=== PATIENT | male | born 1950 | race Caucasian/White ===

== ENCOUNTER 2019-07-05 05:14 | Inpatient (IN) | payer MEDICARE, OTHER ==
[2019-07-05] MEDS ORDERED: NS 0.9% 1000 ML** 2,000 ML IV ONE (05:26)
[2019-07-05] MEDS ORDERED: cefTRIAXone(*) 1 GM in NS 0.9% 50 ML* 50 ML IVPB ONE (05:26)
[2019-07-05] MEDS ORDERED: Azithromycin 500 mg/250 ml NS 500 MG/250 ML BAG IVPB ONE (05:26)
[2019-07-05] MEDS ORDERED: Hydrocortisone INJ* 250 MG VIAL IV ONE (05:27)
--- NOTE | 2019-07-05 05:36 | ED ---
HPI Cardiac - HPI Summary HPI Summary: Patient is a 68 y/o M presenting to [facility] via EMS from [facility] for SOB. The patient had been evaluated at [place] yesterday for SOB. He was diagnosed with new onset afib, prescribed metoprolol and xarelto. Tonight, after eating food, he became SOB with tachypnea. The patient went to [place], diltiazem 10 mg was administered. He began to experience N/V. It is reported that the patient's HR dropped to 20s, pacers were placed. However, no pacing was needed as HR waldo to 60s. The patient later became nauseous once more and dropped to 40s. HR waldo again after the patient vomited. Patient was given reglan 5 mg IV and NS. During transport, the patient was hypotensive, with systolic BP in 90s which worsened to 70s. Patient improved to 106/75 upon arrival after EMS fluids administration. The patient states that he first began to experience SOB two weeks ago. He notes that exertion aggravated SOB. Some cough is noted as well. Fever, BLE edema, and chest pain are denied. Decreased appetite tonight is noted. PMHx of left inguinal hernia and TIA stated. PSHx of lower back surgery noted. In the room, patient is NSR. Home medications and allergies are reviewed. - History of Current Complaint Stated Complaint: RAPID HR PER EMS Hx Obtained From: Patient Onset/Duration: Still Present Timing: Constant Current Severity: None Pain Scale Used: 0-10 Numeric Character: Dyspnea at Exertion Aggravating Factor(s): Exertion Alleviating Factor(s): Nothing Associated Signs and Symptoms: Positive: Shortness of Breath, Cough, Other: - positive - decreased appetite. Negative: Chest Pain, Swelling, Fever - Allergy/Home Medications Allergies/Adverse Reactions: Allergies Allergy/AdvReac Type Severity Reaction Status Date / Time No Known Allergies Allergy Verified 07/05/19 05:30 Home Medications: Home Medications Metoprolol Succinate XL TAB* [Toprol XL TAB*] 50 mg PO DAILY 07/05/19 [History Confirmed 07/05/19] Rivaroxaban TAB(*) [Xarelto 20 mg] 20 mg PO DAILY 07/05/19 [History Confirmed ] PMH/Surg Hx/FS Hx/Imm Hx Musculoskeletal History: Reports: Other Musculoskeletal History - inguinal hernia Sensory History: Denies: Hx Legally Blind, Hx Deafness Opthamlomology History: Denies: Hx Legally Blind EENT History: Denies: Hx Deafness Neurological History: Reports: Hx Transient Ischemic Attacks (TIA) - Surgical History Surgery Procedure, Year, and Place: lower back surgery - Family History Known Family History: Negative: Seizure Disorder - Social History Alcohol Use: Occasionally Substance Use Type: Reports: None Smoking Status (MU): Never Smoked Tobacco Review of Systems Negative: Fever Negative: Chest Pain Positive: Shortness Of Breath, Cough Gastrointestinal: Other - positive - decreased appetite Positive: Vomiting, Nausea Negative: Edema All Other Systems Reviewed And Are Negative: Yes Physical Exam - Summary Physical Exam Summary: Appearance: Ill-appearing, Well-nourished, lying in bed. He is noted to be hypotensive. Skin: Warm, dry, no obvious rash Eyes: sclera anicteric, no conjunctival pallor ENT: mucous membranes moist, pharynx appears normal Neck: Supple, nontender Respiratory: He has bibasilar rhonchi, no signs of respiratory distress Cardiovascular: Regular rapid rhythm with no extra heart sounds noted. Normal S1 , S2. No murmurs. Normal distal pulses in tibial and radial bilaterally. Abdomen: Obese but soft, nontender, normal active bowel sounds present Musculoskeletal: Normal, Strength/ROM Intact Neurological: A&Ox3, awake and alert, mentation is normal, speech is fluent and appropriate Psychiatric: affect is normal, does not appear anxious or depressed Triage Information Reviewed: Yes Vital Signs Reviewed: Yes Procedures - Sedation Patient Received Moderate/Deep Sedation with Procedure: No Diagnostics - Laboratory Result Diagrams: 07/05/19 07:30 07/05/19 07:30 Lab Statement: Any lab studies that have been ordered have been reviewed, and results considered in the medical decision making process. - CT CTA CHEST/THORAX CT Interpretation Completed By: Radiologist Summary of CT Findings: IMPRESSION: 1. No acute pulmonary embolic disease. 2. Cardiomegaly with an enlarged left and right atria. Moderate bilateral. pleural effusion with associated atelectasis. 3. Engorgement of the pulmonary venous system. This may represent fluid. overload. THIS REPORT WAS REVIEWED BY DR. COOMBS. - EKG 0530 Cardiac Rate: Tachycardia EKG Rhythm: Sinus Tachycardia Summary of EKG Findings: EKG showed sinus tachycardia with rate of 128 BPM, borderline low voltage extremity leads, no STEMI. ED physician has reviewed and interpreted this EKG. Disposition - Course Course Of Treatment: Patient is a 68 y/o M presenting to [facility] via EMS from [facility] for SOB. The patient had been evaluated at [place] yesterday for SOB. He was diagnosed with new onset afib, prescribed metoprolol and xarelto. Tonight, after eating food, he became SOB with tachypnea. The patient went to [place], diltiazem 10 mg was administered. He began to experience N/V. It is reported that the patient's HR dropped to 20s, pacers were placed. However , no pacing was needed as HR waldo to 60s. The patient later became nauseous once more and dropped to 40s. HR waldo again after the patient vomited. Patient was given reglan 5 mg IV and NS. During transport, the patient was hypotensive, with systolic BP in 90s which worsened to 70s. Patient improved to 106/75 upon arrival after EMS fluids administration. The patient states that he first began to experience SOB two weeks ago. He notes that exertion aggravated SOB. Some cough is noted as well. Fever, BLE edema, and chest pain are denied. Decreased appetite tonight is noted. On physical exam, patient is noted to be ill- appearing and hypotensive. He has bibasilar rhonchi. Abdomen is obese but soft. Regular rapid rhythm with no extra heart sounds noted. EKG showed sinus tachycardia with rate of 128 BPM, borderline low voltage extremity leads, no STEMI. CTA CHEST/THORAX IMPRESSION: 1. No acute pulmonary embolic disease. 2. Cardiomegaly with an enlarged left and right atria. Moderate bilateral. pleural effusion with associated atelectasis. 3. Engorgement of the pulmonary venous system. This may represent fluid. overload. During ED course, patient received fluids, solu-cortef 250 mg IV, ceftriaxone sodium 1 gm in 50 mls @ 100 mls IVPB, azithromycin 500 mg/250 mls @ 250 mls/hr IVPB, and albuterol 2.5 mg INH. Patient's case was discussed with Dr. Tian, Dr. Tian accepts for admission. - Diagnoses Provider Diagnoses: Respiratory failure, Hypotension - Physician Notifications Discussed Care Of Patient With: Erick Tian Time Discussed With Above Provider: 06:06 Instructed by Provider To: Other - Patient's case was discussed with Dr. Tian, Dr. Tian accepts for admission. - Critical Care Time Critical Care Time: 30-74 min Discharge ED - Sign-Out/Discharge Documenting (check all that apply): Patient Departure - admit - Discharge Plan Condition: Guarded Disposition: ADMITTED TO [facility] - Billing Disposition and Condition Condition: GUARDED Disposition: Admitted to [facility] - Attestation Statements Document Initiated by Toni: Yes Documenting Scribe: SARAH REGALADO Provider For Whom Toni is Documenting (Include Credential): SHELDON COOMBS MD Scribe Attestation: SARAH Sarabia, scribed for SHELDON COOMBS MD on 07/06/19 at 0555. Scribe Documentation Reviewed: Yes Provider Attestation: The documentation as recorded by the SARAH lamb accurately reflects the service I personally performed and the decisions made by me, SHELDON COOMBS MD Status of Scribe Document: Viewed
[2019-07-05] MEDS ORDERED: Iodixanol* (CONTRAST) 320 MG/ML 100 ML SDV IV ONE (05:56)
[2019-07-05] MEDS ORDERED: Albuterol 2.5 MG/3 ML NEB.SOL* (0.083%) INH ONE (06:02)
[2019-07-05] MEDS ORDERED: Ondansetron INJ* 2 MG/ML VIAL IV ONE (06:55)
[2019-07-05] MEDS ORDERED: Ondansetron INJ* 2 MG/ML VIAL ONE (06:56)
[2019-07-05] MEDS ORDERED: Norepinephrine 16MCG/ML IVPRE* 4,000 MCG/250 ML BAG IV ONE (07:37)
[2019-07-05] MEDS: Norepinephrine 16MCG/ML IVPRE* 4,000 MCG/250 ML BAG IV SCH ×6 (07:39→23:27)
--- NOTE | 2019-07-05 07:42 | ED ---
Progress - Progress Note Progress Note: Upon re-evaluation of the patient, he states that he is not feeling well with lightheadedness, nausea, bloating and distension of the abdomen, and shortness of breath. Past medical history is significant for TIA with aspirin use. He was seen in [facility] yesterday for having shortness of breath for the last few weeks when he was diagnosed with new onset atrial fibrillation and was prescribed Toprolol and Xarelto. He continued to experience shortness of breath and returned to [place], but he was then transferred here as he showed atrial flutter. En route to [facility], his blood pressures were waxing and waning, and he was bradycardic. The patient was seen by Dr. North Lemons in the ED with plan and acceptance for admission. However, prior to being sent to the floor, he is still very short of breath with waxing and waning heart rate and blood pressures. Blood work results reveal hemoglobin of 13.5, hematocrit of 40, MCV of 95, MCH of 32, INR of 1.27, carbon dioxide of 15, BUN of 26, creatinine of 1.18, glucose of 186, lactic acid of 2.9, calcium of 7.9, magnesium of 1.8, BNP of 546 , and total protein of 6. ABG results reveal pH of 734, pCO2 of <20, HCO3 of 13.7, and base excess of -14.4. VBG results reveal pH of 7.23, pCO2 of 25, pO2 of 50, HCO3 of 12.4, and base excess of -15.3. EKG at 0717 reveals ectopic rhythm at [address] elevations. Chest X-Ray reveals bilateral pleural effusions with bibasilar atelectasis versus consolidation. Patient agrees and understands need for intubation. (see procedure note) Dr. Coreas, health care recruiter, is in the ED at 0820. She accepts the patient for admission to the ICU. Chest X-Ray following intubation shows tube placement, pulmonary interstitial edema with progression of right lower lung airspace disease, persistent left lower lung airspace disease, and small bilateral pleural effusions. - Results/Orders Results/Orders: EKG at 0717: ectopic rhythm at [address] elevations. ED physician has reviewed and interpreted this EKG. Chest X-Ray Impression: Bilateral pleural effusions with bibasilar atelectasis versus consolidation. ED physician has reviewed this report. Chest X-Ray (post-intubation) Impression: 1. Lines and tubes as above. 2. Interval development of pulmonary interstitial edema with progression of right lower lung airspace disease. 3. Persistent left lower lung airspace disease. 4. Small bilateral pleural effusions. ED physician has reviewed this report. Course/Dx - Course Course Of Treatment: This patient is a 68-year-old male who was signed out from Dr. Lemons at shift change. He reports that the patient is awaiting for admission to the hospital services. The primary nurse reported that the patient is hypotensive, with nausea and vomiting, and he is confused. I evaluated the patient, and the patient is clammy, diaphoretic, and slightly confused. I spoke with patient and family members and the need for the patient to be intubated for protection of his airway. O2 saturation is 90% on 4 liters of oxygen, blood pressure is 80/40 mmHg. I started the patient on Levophed. Patients blood pressure increased to 180/110 mmHg. Patient was given succinylcholine and etomidate. I intubated the patient at the first attempt. Patients blood pressure has not improved, and he was placed on Vasopressin. Patient given 3mg then 2mg Versed by nurse. Dr. Coreas from the ICU saw and examined the patient, and she agrees with management. She requested to place the patient on Versed drip for sedation. Patient was admitted by Dr. Coreas to the ICU. Repeat blood work: CBC within normal limits except for hemoglobin of 13.5, INR of 1.27, carbon dioxide of 15, BUN of 26, creatinine of 1.18, glucose of 186, lactic acid of 2.9, magnesium of 1.8, CK-MB of 7.1, and BNP of 446. Influenza A and B is negative. Lactic acid of 2.9. ABG: PH of 7.34, PCO2 less than 20, PO2 of 89, and O2 sat of 97.6. Chest X-ray after intubation Impression: 1. Lines and tubes as above. 2. Interval development of pulmonary interstitial edema with progression of right lower lung airspace disease. 3. Persistent left lower lung airspace disease. 4. Small bilateral pleural effusions. - Diagnoses Provider Diagnoses: Respiratory failure, Hypotension - Provider Notifications Discussed Care Of Patient With: Marion Coreas - health care recruiter Time Discussed With Above Provider: 08:20 Instructed by Provider To: Admit As Inpatient - Dr. Coreas accepts the patient for admission to the ICU. Discharge ED - Sign-Out/Discharge Documenting (check all that apply): Patient Departure - Patient accepted for admission to the ICU by Dr. Coreas., Receiving Sign-Out Receiving patient FROM: North Lemons - Patient admitted by Dr. Lemons prior to shift change but patient still in ED at shift change at 0700 on 07/05/19. - Discharge Plan Condition: Stable Disposition: ADMITTED TO [facility] - Billing Disposition and Condition Condition: STABLE Disposition: Admitted to [facility] - Attestation Statements Document Initiated by Scribe: Yes Documenting Scribe: Mitzi Duvall Provider For Whom Toni is Documenting (Include Credential): Dr. Joseph Reyes MD Scribe Attestation: Mitzi Sarabia, scribed for Dr. Joseph Reyes MD on 07/05/19 at 1851. Scribe Documentation Reviewed: Yes Provider Attestation: The documentation as recorded by the Mitzi lamb accurately reflects the service I personally performed and the decisions made by me, Dr. Joseph Reyes MD Status of Scribe Document: Viewed Procedures - Procedure Summary Procedure Summary: Procedure - Endotracheal Intubation Permit was implied secondary to an emergent situation. An LMA and bougie were placed within arm's reach. A Glidescope blade was inserted into the oropharynx at which time the vocal cords were visualized. A 7.5 Lithuanian endotracheal tube was inserted and visualized going through the vocal cords. The stylet was removed. The colorimetric change was visualized on the CO2 meter. Breath sounds were heard in both lung belcher equally. The endotracheal tube was placed at 23 cm, measured at the teeth. Portable chest x-ray ordered for confirmation of tube level. Post intubation sedation ordered. Intubation was made at the first attempt. No complications were encountered. - Sedation Patient Received Moderate/Deep Sedation with Procedure: No
[2019-07-05 07:56] LABS: ABS Lymphocytes 1.6 10^3/ul (1.0-4.8); ABS Monocytes 0.3 10^3/ul (0-0.8); ABS Neutrophils 6.2 10^3/ul (1.5-7.7); Eosinophil % 0.1 %; Hematocrit 40 % (42-52); Hemoglobin 13.5 g/dL (14.0-18.0); Lymphocyte % 19.7 %; Mean Corpuscular HGB Conc 34 g/dL (31-36); Mean Corpuscular Hemoglobin 32 pg (27-31); Mean Corpuscular Volume 95 fL (80-94); Mean Platelet Volume 8.4 fL (7.4-10.4); Platelet Count 239 10^3/uL (150-450); Red Blood Count 4.23 10^6 /uL (4.18-5.48); Red Cell Distribution Width 13 % (10-15); White Blood Count 8.2 10^3/uL (3.5-10.8)
[2019-07-05 08:02] LABS: INR 1.27 (0.82-1.09)
[2019-07-05] MEDS ORDERED: Etomidate* 2 MG/ML 20 ML VIAL (40 MG) ONE (08:04)
[2019-07-05] MEDS ORDERED: Succinylcholine* 20 MG/ML 10 ML VIAL ONE (08:05)
[2019-07-05 08:15] LABS: Albumin 3.6 g/dL (3.2-5.2); Calcium 7.9 mg/dL (8.6-10.3); Magnesium 1.8 mg/dL (1.9-2.7); Potassium 4.3 mmol/L (3.5-5.0); Total Bilirubin 0.5 mg/dL (0.2-1.0)
[2019-07-05] MEDS ORDERED: Midazolam* 1 MG/ML 5 ML VIAL (5 MG) ONE ×4 (08:16→09:35)
[2019-07-05] MEDS ORDERED: fentaNYL* 50 MCG/ML 2 ML VIAL (100 MCG VIAL) ONE ×2 (08:17→10:21)
[2019-07-05 08:21] LABS: Albumin/Globulin Ratio 1.5 (1-3); EGFR African American 74.7 (>60); EGFR Non-African American 61.8 (>60); Globulin 2.4 g/dL (2-4)
[2019-07-05] MEDS ORDERED: VECURONIUM BROMIDE 10 MG INJ ONE (08:28)
[2019-07-05] MEDS ORDERED: Vasopressin* 100 UNITS in D5W 250 ML BAG* 245 ML IV SCH (08:30)
[2019-07-05 08:36] LABS: Troponin I 0.01 ng/mL (<0.03)
[2019-07-05 08:38] LABS: CKMB ng/mL 7.1 ng/mL (0.6-6.3)
[2019-07-05] MEDS ORDERED: Midazolam* 1 MG/ML 5 ML VIAL (5 MG) IV SLOW PU ONE (08:43)
[2019-07-05 08:44] LABS: Influenza A Molecular NEGATIVE (Negative); Influenza B Molecular NEGATIVE (Negative)
[2019-07-05 08:45] LABS: Free T4 0.85 ng/dL (0.61-1.12)
[2019-07-05] MEDS ORDERED: Phenylephrine 10 MG/ML VIAL* 50 MG in NS 0.9% 250 ML* 245 ML IV SCH (09:00)
[2019-07-05] MEDS ORDERED: Midazolam IV for DRIP* 100 MG in NS 0.9% 100 ML* 80 ML IV SCH (09:00)
[2019-07-05] MEDS ORDERED: Midazolam* 1 MG/ML 2 ML VIAL (2 MG) IV SLOW PU ONE (09:42)
[2019-07-05 10:02] LABS: TSH (Thyroid Stimulating Horm) 14.33 mcIU/mL (0.34-5.60)
[2019-07-05 11:15] LABS: Urine Appearance Clear; Urine Bilirubin Negative (Negative); Urine Blood 1+ (Negative); Urine Color Yellow; Urine Glucose Negative (Negative); Urine Ketones Negative (Negative); Urine Nitrite Negative (Negative); Urine Protein 1+(30 mg/dL) (Negative); Urine Specific Gravity > 1.060 (1.010-1.030); Urine Urobilinogen Negative (Negative)
[2019-07-05] MEDS ORDERED: NS 0.9% 1000 ML** 1,000 ML IV SCH (11:15)
[2019-07-05 11:24] LABS: Urine Bacteria Absent (Absent); Urine Red Blood Cell 1+(3-5/hpf) (Absent); Urine White Blood Cell Absent (Absent)
[2019-07-05] MEDS ORDERED: Magnesium Sulfate 1 GM IV* 1 GM/100 ML BAG IV ONE (11:26)
--- NOTE | 2019-07-05 11:39 | HP ---
History of Present Illness - History of Present Illness Reason for Visit: shortness of breath History of Present Illness: 68 yo M with PMH notable only for distant hx of TIA and no regular medical followup presented to [place] ED on 07/04 with shortness of breath. At that time he was found to be in atrial flutter; per patient he has not prior history of arrhythmia. He was given cardizem and sent home with Rx for Metoprolol and Rivaroxaban. He returned to the ED later that evening for worsening shortness of breath. He was give 10 mg of Cardizem with subsequent development of symptomatic hypotension with SBP < 60. He was transferred to [place] ED for further workup and care. In [place] ED he was noted to be tachycardic but in sinus rhythm. He had increasing work of breathing and was intubated for acute hypoxic respiratory failure. CXR showed bilateral effusions and infiltrates. CTA chest negative for PE. He was started on Levophed for septic shock, Rocephin and Azithromycin for suspected community acquired pneumonia and admitted to ICU for further care. 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 - Past Surgical History Past Surgical History: Hernia Repair, Other - "lower back surgery" - Past Social History Smoke: No Alcohol: Occasional Drugs: None Review of Systems - Review of Systems Respiratory: Positive: Cough, Shortness of Breath Gastrointestinal: Positive: Nausea, Vomiting, Other - anorexia - Medications/Allergies Allergies/Adverse Reactions: Allergies Allergy/AdvReac Type Severity Reaction Status Date / Time No Known Allergies Allergy Verified 07/05/19 05:30 Medications: Current Medications Heparin Sodium (Porcine) (Heparin Flush Picc/Ml/Cvc(*)) 0 ml FLUSH 0600,1800 GAYATRI; Protocol Norepinephrine Bitartrate (Levophed 16 Mcg/Ml Premix*) 4,000 mcg in 250 mls @ 18.75 mls/hr IV .INITIAL RATE GAYATRI Last Admin: 07/05/19 09:52 Dose: 93.8 mls/hr Vasopressin 100 units/ (Dextrose) 250 mls @ 0 mls/hr IV .(Initial Rate) GAYATRI; Protocol Midazolam HCl 100 mg/ Sodium (Chloride) 100 mls @ 2 mls/hr IV .Q24HR GAYATRI; Protocol Last Admin: 07/05/19 09:45 Dose: 2 mls/hr Phenylephrine HCl 50 mg/ (Sodium Chloride) 250 mls @ 30 mls/hr IV .(Initial Rate) GAYATRI; Protocol Sodium Chloride (Ns 0.9% 1000 Ml) 1,000 mls @ 100 mls/hr IV PER RATE GAYATRI Exam - Exam Vital Signs: Vital Signs (72 hours) 07/05/19 07/05/19 07/05/19 05:19 05:20 05:21 Temperature 96 F Pulse Rate 129 129 Respiratory 17 25 30 Rate Blood Pressure 126/59 106/87 (mmHg) O2 Sat by Pulse 95 95 Oximetry 07/05/19 07/05/19 07/05/19 05:27 06:00 06:10 Temperature Pulse Rate 127 127 111 Respiratory 29 31 23 Rate Blood Pressure 106/87 102/86 (mmHg) O2 Sat by Pulse 95 96 96 Oximetry 07/05/19 07/05/19 07/05/19 06:35 06:39 07:00 Temperature Pulse Rate 126 100 Respiratory 40 22 30 Rate Blood Pressure 109/86 (mmHg) O2 Sat by Pulse 97 96 Oximetry 07/05/19 07/05/19 07/05/19 07:12 07:15 07:17 Temperature 96.3 F Pulse Rate 127 124 Respiratory 21 19 Rate Blood Pressure 85/70 96/63 (mmHg) O2 Sat by Pulse 97 96 Oximetry 07/05/19 07/05/19 07/05/19 07:32 07:44 07:55 Temperature Pulse Rate 124 124 Respiratory 27 30 35 Rate Blood Pressure 183/141 (mmHg) O2 Sat by Pulse 96 97 Oximetry 07/05/19 07/05/19 07/05/19 08:00 08:06 08:16 Temperature Pulse Rate 124 Respiratory 32 33 Rate Blood Pressure 145/114 84/59 (mmHg) O2 Sat by Pulse 90 Oximetry 07/05/19 07/05/19 07/05/19 08:20 08:26 08:30 Temperature Pulse Rate 127 128 149 Respiratory Rate Blood Pressure 43/33 200/143 135/104 (mmHg) O2 Sat by Pulse 92 87 86 Oximetry 07/05/19 07/05/19 07/05/19 08:36 08:39 08:46 Temperature 95.4 F Pulse Rate 123 123 124 Respiratory Rate Blood Pressure 118/71 75/64 121/95 (mmHg) O2 Sat by Pulse 100 100 99 Oximetry 07/05/19 07/05/19 07/05/19 08:55 09:45 09:58 Temperature 96.8 F 96.8 F Pulse Rate 124 123 Respiratory 26 28 Rate Blood Pressure 128/96 128/96 (mmHg) O2 Sat by Pulse 99 99 Oximetry 07/05/19 10:29 Temperature Pulse Rate Respiratory 25 Rate Blood Pressure (mmHg) O2 Sat by Pulse Oximetry General: Other - sedated HEENT: Atraumatic, Mucous membr. moist/pink Lungs: Clear to auscultation, Normal air movement Cardiovascular: Other - tachycardic, regular Abdomen: Soft, No tenderness Extremities: No edema, Other - warm, dry Skin: No rashes, No breakdown Neurological: Other - sedated Psych/Mental Status: Other - sedated Assessment/Plan - Assessment/Plan Assessment: 68 yo M admitted with bilateral community acquired pneumonia, sepsis and an episode of atrial fib/flutter with RVR now sinus tachycardia Plan: Hospital Diagnoses: #1: Septic shock #2: Paroxysmal Atrial fib/flutter with RVR #3: Acute hypoxic respiratory failure #4: Bilateral community acquired pneumonia Cardiovascular: (1) Septic shock; (2) Paroxysmal Atrial fib/flutter with RVR -- HR 100-149 -- SBP 43-200 -- Telemetry -- Lipid panel ordered -- Cardiac markers CK 129 MB 7.1 Trop 0.01 BNP 546 -- Vasopressors Levophed @ 25 mcg/min Vasopressin now off Neosyneprhine not started -- TTE ordered for new onset atrial flutter and findings of bilateral atrial enlargement and pulm vein engorgement on CTA. Home meds: Metoprolol Pulmonary: (1) Acute hypoxic respiratory failure; (2) Bilateral community acquired pneumonia -- RR 17-40 -- sats 86-100 -- vent: daily SBT -- CXR: interval development of pulmonary interstitial edema iwht progression of right lower lung airspace disease. Persistent left lower lung airspace disease. Small bilateral pleural effusions. -- CTA: No acute pulmonary embolic disease. Cardiomegaly with enlarged left and right atria. Moderate bilateral pleural effusions. Engorgement of pulmonary venous system. -- ABG: pH 7.34; pCO2 <20; pO2 89; HCO3 13.7; BE -14.4; %O2 Sat 97.6. on vent Home meds: None Gastrointestinal: No acute issues -- LFTs within normal limits -- diet: NPO -- bowel regimen: None -- ulcer prophylaxis: Pepcid Home meds: None Endocrine: (1) Hypothyroid -- monitor BGs -- Hgb A1c ordered -- TFT TSH 14.33, high T4 0.85, within normal limits -- start synthroid Home meds: None Renal: (1) Prerenal azotemia; (2) Hypocalcemia; (3) Hypomagnesemia -- Cr 1.18 -- Lytes Na 135 K 4.3 Ca 7.9, replace Mag 1.8, replace Phos ordered with AM Labs -- IVF: NS @ 100 ml/hr Home meds: None Infectious disease: (1) Sepsis; (2) Bilateral community acquired pneumonia -- Tmax 96.8 -- WBC 8.2 -- Micro 12/4 MRSA ordered Blood ordered urine ordered sputum ordered Flu A&B negative -- ABX Rocphein Azithromcyin Home meds: None Neurologic: (1) distant hx of TIA -- Versed gtt for sedation -- PRN Fentanyl for pain control Home meds: None Hematological: No acute issues -- Hgb 13.5 -- Plt 239 -- Coags INR 1.27 PTT 29 -- DVT prophylaxis: SQ Lovenox Home meds: Metoprolol, Rivaroxaban Metabolic: (1) Lactic acidosis -- Lactic acid 2.9, hydrating, follow trend Home meds: None Other: No acute issues Home meds: None Deep vein thrombosis prophylaxis: SQ Lovenox Dietary: Pepcid Condition: critical Prognosis: guarded Code status: full Disposition: admit to ICU Family updated at bedside regarding interval events and plan of care Cumulative time spent in the care of this patient (excluding any procedure time) : at least 70 minutes. Patient care included clinical interview (with patient and/or family), bedside exam of the patient, review of labs, x-rays, and other ancillary data, coordination of (respiratory, nursing care, review of patient's records, discussion regarding patients management with involved consultants, primary physician, pharmacists, and other healthcare personnel (dietary, case management , physical/occupational therapy etc.)
--- NOTE | 2019-07-05 11:55 | OP ---
Operative Report - Blank - Operative Report Date of Operation: 07/05/19 - Central Line placement Note: Procedure: Central Line placement Consent obtained: Verbal, from Time out performed: Yes Indications: Vascular access Anesthesia: Local infiltration Local anesthetic: 1% Lidocaine 10 ml Preparation: Chlorhexadine swab Skin prep agen dried: skin prep agent dried prior to procedure Sterile barrier: all five maximal sterile barriers used - gloves, gown, cap, mask and large sterile sheet Hand hygiene: Hand hygiene performed prior to central venous catheter insertion Location: Left IJ Patient position: trendelenberg Catheter type: Triple lumen Catheter size: 7F Pre-procedure: landmarks identified Ultrasound guidance: Yes Sterile ultrasound technique: Sterile gel and sterile probe covers were used Number of attempts: 1 Successful placement: Yes Post-procedure: Line sutured, dressing applied Assessment: blood return through all ports, free fluid flow, CXR pending Complications: None Patient tolerated the procedure with no immediate complications
--- NOTE | 2019-07-05 11:57 | OP ---
Operative Report - Blank - Operative Report Date of Operation: 07/05/19 - Arterial Line Note: Procedure: Arterial Line placement Consent obtained: Verbal, from Time out performed: Yes Indications: septic shock Anesthesia: Versed and Fentanyl Local anesthetic: 1% Lidocaine Preparation: Chlorhexadine swab Skin prep agent dried: prior to procedure Sterile barrier: all five maximal sterile barriers used - gloves, gown, cap, mask and large sterile sheet Hand hygiene: Hand hygiene performed prior to insertion Location: left radial Patient position: supine Catheter type: arrow radial kit Ultrasound guidance: yes Number of attempts: 1 Successful placement: yes Post-procedure: Line sutured, dressing applied Assessment: unchanged from prior. arterial tracing on monitor Complications: no immediate complications
[2019-07-05] MEDS ORDERED: NS 0.9% 1000 ML** 1,000 ML IV ONE (11:58)
[2019-07-05] MEDS ORDERED: Albumin Human 25%* 25 GM/100 ML BTL IV ONE (11:58)
[2019-07-05] MEDS ORDERED: Enoxaparin(*) 40 MG/0.4 ML SYR SUBCUT SCH (12:00)
[2019-07-05] MEDS ORDERED: Levothyroxine INJ* 100 MCG in D5W 250 ML BAG* 250 ML IV SCH (12:00)
[2019-07-05] MEDS ORDERED: Calcium Gluconate INJ* 1 GM in NS 0.9% 50 ML* 50 ML IVPB ONE (12:00)
[2019-07-05 12:15] LABS: HDL Cholesterol 46.6 mg/dL
[2019-07-05] MEDS: fentaNYL* 50 MCG/ML 2 ML VIAL (100 MCG VIAL) IV SLOW PU PRN ×2 (12:31→13:35)
[2019-07-05] MEDS ORDERED: Perflutren Lipid Microsphere* 3 ML VIAL ONE (13:05)
[2019-07-05] MEDS: Chlorhexidine MOUTHWASH 0.12%* 15 ML UDC TOPICAL SCH ×3 (13:25→19:46)
[2019-07-05] MEDS: fentaNYL INFUSION 50 MCG/ML* 2,500 MCG/50 ML BAG IV SCH (14:23)
--- NOTE | 2019-07-05 17:30 | ECHO ---
*[facility]* [place] [address] Fax #: [phone] Transthoracic Echocardiogram Patient: [place] Lopez : 1950 Study Date: 07/05/2019 Age: 68 Gender: M HR: 119 bpm Height: 64 in /162.6 cm BSA: 1.83 m^2 Weight: 171.6 lb /78 kg BMI: 29.5 kg/m^2 *Cma Or Lpn: Kelin Cates [facility] *Referring Physician: * Marion Coreas *Reading Physician: * Kandice Prasad MD Indications: Abnormal EKG. History: Transient ischemic attack. Conclusions Summary: - Left ventricle: The cavity size is mildly dilated. Wall thickness is mildly increased. Systolic function is severely reduced. The estimated ejection fraction is 15-20%. Multiple regional wall motion abnormalities: Joshua appears akinetic, posterior lateral wall and very base move best. - Right ventricle: Systolic function is moderately reduced. - Mitral valve: There is moderate to severe regurgitation. - Tricuspid valve: There is moderate-severe regurgitation. - Pericardium, extracardiac: There is a left pleural effusion. - Pulmonary arteries: Systolic pressure is within the normal range but may be underestimated. The peak pressure during systole by Doppler is 26.0 mm Hg. - No prior echocardiogram to compare. Study data: Transthoracic echocardiogram. Procedure: Transthoracic echocardiography was performed. Image quality was suboptimal. Intravenous Definity , 2 mlswas administered. Complete 2D, spectral Doppler, and color flow Doppler. Location: ICU Patient status: Inpatient. Patient room number: 7. Rhythm: Atrial flutter. Findings Left ventricle: The cavity size is mildly dilated. Wall thickness is mildly increased. Systolic function is severely reduced. The estimated ejection fraction is 15-20%. Severe diffuse hypokinesis with regional variations. Multiple regional wall motion abnormalities: Joshua appears akinetic, posterior lateral wall and very base move best. Left ventricular diastolic function is abnormal, parameters are indeterminate wrt to grade. Right ventricle: The cavity size is normal. Systolic function is moderately reduced. Left atrium: The atrium is severely dilated. Right atrium: The atrium is moderately dilated. Mitral valve: The leaflets are normal thickness. There is no evidence of stenosis. There is moderate to severe regurgitation. Aortic valve: The valve is trileaflet. The leaflets are normal thickness. There is no evidence of stenosis. There is no significant regurgitation. Tricuspid valve: The leaflets are normal thickness. There is no evidence of stenosis. There is moderate-severe regurgitation. Pulmonic valve: The leaflets are normal thickness. There is no evidence of stenosis. There is no significant regurgitation. Aorta: The aortic root appears normal. The aortic arch appears normal. Pericardium: A trace pericardial effusion is identified. There is a left pleural effusion. Pulmonary arteries: The main pulmonary artery is normal-sized. Systolic pressure is within the normal range but may be underestimated. Systemic veins: Inferior vena cava: The vessel is dilated. There is (< 50%) respiratory change in the IVC dimension. Measurements Left ventricle Value Ref Mitral valve Value Ref MEET, LAX 5.5 cm 4.2 - 5.8 Peak E 0.72 m/sec ----- ESD, LAX (H) 5.0 cm 2.5 - 4.0 Decel time 208 ms ----- FS, LAX (L) 9 % 25 - 43 Peak grad, D 2.1 mm Hg ----- PW, ED, LAX 1.0 cm 0.6 - 1.0 ERO, PISA 0.13 cm^2 ----- E', lat ed, TDI (L) 8.5 cm/sec >=10.0 MR vol, PISA 15 ml --- -- E/e', lat ed, 8 TDI Pulmonic valve Value Ref E', med ed, TDI (L) 5.8 cm/sec >=7.0 Peak v, S 0.32 m/sec --- -- E/e', med ed, 12 Peak grad, S 0.0 mm Hg ----- TDI E', avg, TDI 7.2 cm/sec Tricuspid valve Value Ref E/e', avg, TDI 10 <=14 TR peak v 2.1 m/sec &lt ;=2.8 Peak RV-RA grad, S 18 mm Hg ----- LVOT Value Ref Peak tori, S 0.43 m/sec Aortic root Value Ref Root diam 2.9 cm <4.0 Ventricular septum Value Ref IVS, ED (H) 1.1 cm 0.6 - 1.0 Ascending aorta Value Ref AAo AP diam, S 2.9 cm ----- Right ventricle Value Ref MEET, LAX 2.6 cm Aortic arch Value Ref Pressure, S 26 mm Hg Arch diam 2.5 cm ----- Left atrium Value Ref Decending aorta Value Ref AP dim, ES (H) 4.60 cm 3.00 - Alan peak tori 0.35 m/sec ----- 4.00 ML dim, A4C 4.3 cm Pulmonary artery Value Ref SI dim, A4C 6.4 cm Pressure, S 26.0 mm Hg ----- Vol/bsa, ES, A/L (H) 51 ml/m^2 16 - 34 Inferior vena cava Value Ref Right atrium Value Ref Diam 2.4 cm ----- SI dim, ES (H) 5.5 cm 3.4 - 5.3 Estimated RAP 8 mm Hg Aortic valve Value Ref Ed diam, ED 2.2 cm Ed diam/bsa, ED 1.2 cm/m^2 Peak v, S 0.52 m/sec Peak grad, S 1.0 mm Hg Legend: (L) and (H) kimberly values outside specified reference range. Prepared and electronically signed by Kandice Prasad MD 07/05/2019 17:29
[2019-07-05] MEDS: Famotidine IV* 10 MG/ML 2 ML (20 mg) IV SLOW PU SCH (20:00)
[2019-07-06] MEDS: Chlorhexidine MOUTHWASH 0.12%* 15 ML UDC TOPICAL SCH ×6 (00:21→19:50)
[2019-07-06] MEDS: Norepinephrine 16MCG/ML IVPRE* 4,000 MCG/250 ML BAG IV SCH ×4 (03:37→22:54)
[2019-07-06] MEDS: cefTRIAXone(*) 1 GM in NS 0.9% 50 ML* 50 ML IVPB SCH (05:13)
[2019-07-06 06:03] LABS: Hematocrit 36 % (42-52); Hemoglobin 12.2 g/dL (14.0-18.0); Mean Corpuscular HGB Conc 34 g/dL (31-36); Mean Corpuscular Hemoglobin 32 pg (27-31); Mean Corpuscular Volume 96 fL (80-94); Mean Platelet Volume 8.2 fL (7.4-10.4); Platelet Count 221 10^3/uL (150-450); Red Blood Count 3.79 10^6 /uL (4.18-5.48); Red Cell Distribution Width 13 % (10-15); White Blood Count 9.7 10^3/uL (3.5-10.8)
[2019-07-06 06:17] LABS: BUN/Creatinine Ratio 23.1 (8-20); Calcium 7.5 mg/dL (8.6-10.3); EGFR African American 75.5 (>60); EGFR Non-African American 62.4 (>60); Phosphorus 3.6 mg/dL (2.5-5.0); Potassium 4.4 mmol/L (3.5-5.0)
[2019-07-06] MEDS: Azithromycin 500 mg/250 ml NS 500 MG/250 ML BAG IVPB SCH (06:26)
[2019-07-06] MEDS: DOBUTAMINE IV SCH ×3 (07:20→18:17)
[2019-07-06] MEDS: DRIP IV SCH ×3 (07:20→18:17)
[2019-07-06] MEDS ORDERED: Albumin Human 25%* 25 GM/100 ML IV STA (07:22)
[2019-07-06] MEDS ORDERED: Digoxin IV* 0.5 MG/2 ML AMP (0.25 MG/ML) IV SLOW PU ONE (07:28)
[2019-07-06] MEDS ORDERED: Digoxin IV* 0.5 MG/2 ML AMP (0.25 MG/ML) ONE ×2 (07:31→07:32)
[2019-07-06] MEDS ORDERED: Adenosine* 3 MG/ML VIAL IV PUSH ONE (07:32)
[2019-07-06] MEDS ORDERED: Adenosine* 3 MG/ML VIAL ONE (07:33)
[2019-07-06] MEDS ORDERED: NS 0.9% 1000 ML** 1,000 ML IV STA (07:37)
[2019-07-06 07:51] LABS: Troponin I 0.03 ng/mL (<0.03)
[2019-07-06] MEDS ORDERED: Flumazenil* 0.1 MG/ML 5 ML MDV ONE (07:52)
[2019-07-06] MEDS ORDERED: Naloxone* 0.4 MG/ML 1 ML VIAL ONE (07:52)
[2019-07-06] MEDS ORDERED: fentaNYL* 50 MCG/ML 2 ML VIAL (100 MCG VIAL) ONE (07:52)
[2019-07-06] MEDS ORDERED: Midazolam* 1 MG/ML 5 ML VIAL (5 MG) ONE (07:52)
[2019-07-06] MEDS ORDERED: Lidocaine 2% VISCOUS* 15 ML UDC ONE (07:53)
[2019-07-06] MEDS: Heparin VIAL(*) 5000 UNITS/ML VIAL (FIVE THOUSAND) IV SCH (08:06)
[2019-07-06] MEDS: Heparin DRIP 25,000 UNITS(*) 25,000 UNITS/500 ML BAG IV SCH (08:06)
--- NOTE | 2019-07-06 08:20 | PN ---
Date of Service: 07/06/19 - HD 2 Critical Care Services: 68 yo M with PMH notable only for distant hx of TIA and no regular medical followup presented to [place] ED on 07/04 with shortness of breath. At that time he was found to be in atrial flutter; per patient he has not prior history of arrhythmia. He was given cardizem and sent home with Rx for Metoprolol and Rivaroxaban. He returned to the ED later that evening for worsening shortness of breath. He was give 10 mg of Cardizem with subsequent development of symptomatic hypotension with SBP < 60. He was transferred to [place] ED for further workup and care. In [place] ED he was noted to be tachycardic but in sinus rhythm. He had increasing work of breathing and was intubated for acute hypoxic respiratory failure. CXR showed bilateral effusions and infiltrates. CTA chest negative for PE. He was started on Levophed for septic shock, Rocephin and Azithromycin for suspected community acquired pneumonia and admitted to ICU for further care. 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 Vasopressin and Neosynephrie were added. Stat echo revealed poor EF. Cardiology was consulted and is concerned for tachycardic cardiomyopathy as cause for hemodynamic instability. Planning for AKSHAT this morning. Family at bedside and updated. Vital Signs: Temp Pulse Resp BP SpO2 FiO2 99.3 F 132 17 124/91 100 35 07/06/19 08:05 07/06/19 08:05 07/06/19 06:00 07/06/19 08:01 07/06/19 08:05 07/06 06:05 Physical Exam: Gen: intubated, sedated HEENT: ETT in place, pale Lungs: coarse bilaterally Cardiac: RRR (post cardioversion) Abdomen: soft, NTND Extremities: cool, dry Neuro: sedated Fluid Balance (Past 24 Hours): I= O= Net Intake & Output 07/04/19 07/05/19 07/06/19 07/07/19 06:59 06:59 06:59 06:59 Intake Total 5023 Output Total 644 Balance 4379 Weight 172 lb 170 lb 3.15 oz Intake: IV Fluids 3028 NS (0.9%) 2508 IVPB 241 ABX - CEFTRIAXONE 62 Calcium 74 Magnesium 105 Medicated IV 1754 Albumin 100 Levophed 1460 Levothyroxine 194 Output: Aldrich 644 Labs: Laboratory Results - last 24 hr 07/05/19 07/05/19 07/05/19 07:30 07:30 07:30 WBC RBC Hgb Hct MCV MCH MCHC RDW Plt Count MPV INR (Anticoag Therapy) 1.27 H APTT 29.0 ABG pH ABG pCO2 ABG pO2 ABG HCO3 ABG O2 Saturation ABG Base Excess Sodium 135 Potassium 4.3 Chloride 110 Carbon Dioxide 15 L Anion Gap 10 BUN 26 H Creatinine 1.18 H Est GFR ( Amer) 74.7 Est GFR (Non-Af Amer) 61.8 BUN/Creatinine Ratio 22.0 H Glucose 186 H Hemoglobin A1c Lactic Acid 2.9 H* Calcium 7.9 L Phosphorus Magnesium 1.8 L Total Bilirubin 0.50 AST 28 ALT 30 Alkaline Phosphatase 99 Total Creatine Kinase 129 CK-MB (CK-2) 7.1 H Troponin I 0.01 B-Natriuretic Peptide Total Protein 6.0 L Albumin 3.6 Globulin 2.4 Albumin/Globulin Ratio 1.5 Triglycerides 130 Cholesterol 150 LDL Cholesterol 77 HDL Cholesterol 46.6 TSH 14.33 H Free T4 0.85 Urine Color Urine Appearance Urine pH Ur Specific [place] Urine Protein Urine Ketones Urine Blood Urine Nitrate Urine Bilirubin Urine Urobilinogen Ur Leukocyte Esterase Urine WBC (Auto) Urine RBC (Auto) Urine Bacteria Urine Glucose Influenza A (Rapid) Influenza B (Rapid) 07/05/19 07/05/19 07/05/19 07:30 07:55 08:10 WBC RBC Hgb Hct MCV MCH MCHC RDW Plt Count MPV INR (Anticoag Therapy) APTT ABG pH 7.34 L ABG pCO2 < 20 L ABG pO2 89 ABG HCO3 13.7 L ABG O2 Saturation 97.6 ABG Base Excess -14.4 L Sodium Potassium Chloride Carbon Dioxide Anion Gap BUN Creatinine Est GFR ( Amer) Est GFR (Non-Af Amer) BUN/Creatinine Ratio Glucose Hemoglobin A1c Lactic Acid Calcium Phosphorus Magnesium Total Bilirubin AST ALT Alkaline Phosphatase Total Creatine Kinase CK-MB (CK-2) Troponin I B-Natriuretic Peptide 546 H Total Protein Albumin Globulin Albumin/Globulin Ratio Triglycerides Cholesterol LDL Cholesterol HDL Cholesterol TSH Free T4 Urine Color Urine Appearance Urine pH Ur Specific [place] Urine Protein Urine Ketones Urine Blood Urine Nitrate Urine Bilirubin Urine Urobilinogen Ur Leukocyte Esterase Urine WBC (Auto) Urine RBC (Auto) Urine Bacteria Urine Glucose Influenza A (Rapid) Negative Influenza B (Rapid) Negative 07/05/19 07/05/19 07/05/19 10:45 11:50 11:50 WBC RBC Hgb Hct MCV MCH MCHC RDW Plt Count MPV INR (Anticoag Therapy) APTT ABG pH ABG pCO2 ABG pO2 ABG HCO3 ABG O2 Saturation ABG Base Excess Sodium Potassium Chloride Carbon Dioxide Anion Gap BUN Creatinine Est GFR ( Amer) Est GFR (Non-Af Amer) BUN/Creatinine Ratio Glucose Hemoglobin A1c 5.8 H Lactic Acid 2.3 H* Calcium Phosphorus Magnesium Total Bilirubin AST ALT Alkaline Phosphatase Total Creatine Kinase CK-MB (CK-2) Troponin I B-Natriuretic Peptide Total Protein Albumin Globulin Albumin/Globulin Ratio Triglycerides Cholesterol LDL Cholesterol HDL Cholesterol TSH Free T4 Urine Color Yellow Urine Appearance Clear Urine pH 5.0 Ur Specific [place] > 1.060 H Urine Protein 1+(30 mg/dl) A Urine Ketones Negative Urine Blood 1+ A Urine Nitrate Negative Urine Bilirubin Negative Urine Urobilinogen Negative Ur Leukocyte Esterase Negative Urine WBC (Auto) Absent Urine RBC (Auto) 1+(3-5/hpf) A Urine Bacteria Absent Urine Glucose Negative Influenza A (Rapid) Influenza B (Rapid) 07/06/19 07/06/19 07/06/19 05:20 05:20 05:20 WBC 9.7 RBC 3.79 L Hgb 12.2 L Hct 36 L MCV 96 H MCH 32 H MCHC 34 RDW 13 Plt Count 221 MPV 8.2 INR (Anticoag Therapy) APTT ABG pH ABG pCO2 ABG pO2 ABG HCO3 ABG O2 Saturation ABG Base Excess Sodium 139 Potassium 4.4 Chloride 115 H Carbon Dioxide 16 L Anion Gap 8 BUN 27 H Creatinine 1.17 Est GFR ( Amer) 75.5 Est GFR (Non-Af Amer) 62.4 BUN/Creatinine Ratio 23.1 H Glucose 113 H Hemoglobin A1c Lactic Acid Calcium 7.5 L Phosphorus 3.6 Magnesium 2.0 Total Bilirubin AST ALT Alkaline Phosphatase Total Creatine Kinase CK-MB (CK-2) Troponin I B-Natriuretic Peptide 485 H Total Protein Albumin Globulin Albumin/Globulin Ratio Triglycerides Cholesterol LDL Cholesterol HDL Cholesterol TSH Free T4 Urine Color Urine Appearance Urine pH Ur Specific [place] Urine Protein Urine Ketones Urine Blood Urine Nitrate Urine Bilirubin Urine Urobilinogen Ur Leukocyte Esterase Urine WBC (Auto) Urine RBC (Auto) Urine Bacteria Urine Glucose Influenza A (Rapid) Influenza B (Rapid) 07/06/19 07:10 WBC RBC Hgb Hct MCV MCH MCHC RDW Plt Count MPV INR (Anticoag Therapy) APTT ABG pH ABG pCO2 ABG pO2 ABG HCO3 ABG O2 Saturation ABG Base Excess Sodium Potassium Chloride Carbon Dioxide Anion Gap BUN Creatinine Est GFR ( Amer) Est GFR (Non-Af Amer) BUN/Creatinine Ratio Glucose Hemoglobin A1c Lactic Acid Calcium Phosphorus Magnesium Total Bilirubin AST ALT Alkaline Phosphatase Total Creatine Kinase CK-MB (CK-2) Troponin I 0.03 H* B-Natriuretic Peptide Total Protein Albumin Globulin Albumin/Globulin Ratio Triglycerides Cholesterol LDL Cholesterol HDL Cholesterol TSH Free T4 Urine Color Urine Appearance Urine pH Ur Specific [place] Urine Protein Urine Ketones Urine Blood Urine Nitrate Urine Bilirubin Urine Urobilinogen Ur Leukocyte Esterase Urine WBC (Auto) Urine RBC (Auto) Urine Bacteria Urine Glucose Influenza A (Rapid) Influenza B (Rapid) Studies: 07/06 TTE - completed, read pending EKG - Atrial flutter, 2:1 07/05 CXR - bilateral pleural effusions. bibasilar actelectais vs consolidation. cardiomegaly with pulmonary intersitital edema TTE - mildly dilated LV. mildly increased wall thickness. EF 15-20%. Multiple regional wall motion abnormalities: apex akinetic, posterior lateral wall and base move best. RV with moderately reduced systolic function. MV with moderate to severe regurgitation. TV with moderate to severe regurgitation. pulmonary artery pressure appears within normal limits. CTA chest - no acute pulmonary embolic disease. cardiomegaly with enlarged bilateral atria. moderate bilateral pleural effusions. engorgement of pulmonary venous system. Nutrition: NPO Impression: 68 yo M admitted 07/05 with shock, bilateral infiltrates and paroxysmal atrial flutter. Found to have severely reduced EF on TTE. Significant episodes of profound hypotension coinciding with episodes of atrial flutter. On empiric abx for bilateral infiltrates, though given findings on TTE, now more likely pulmonary edema from heart failure. Plan: Hospital Diagnoses: #1: Cardiogenic shock #2: Paroxysmal Atrial fib/flutter with RVR #3: Acute hypoxic respiratory failure #4: Acute systolic CHF Cardiovascular: (1) Cardiogenic shock; (2) Paroxysmal Atrial fib/flutter with RVR; (3) Acute systolic congestive heart failure; (4) Moderate to severe MR and TR -- HR 88-133 -- SBP 62-136 -- Telemetry -- TTE, 07/05: LVEF 15-20%. Multiple regional wall motion abnormalities. -- AKSHAT this AM with cardioversion -- Lipid panel Triglycerides 130 Cholesterol 150 HDL 46.6 LDL 77 -- Cardiac markers Trop 0.03 from 0.01 BNP 485 from 546 -- Vasopressors Levophed weaned off Vasopressin weaning off Neosyneprhine weaned off Dobutamine -- Therapeutic heparin gtt -- Cardiology following Home meds: Metoprolol Pulmonary: (1) Acute hypoxic respiratory failure; (2) Pulmonary edema and bilateral pleural effusions, secondary to CHF; (3) Question of bilateral community acquired pneumonia -- RR 11-29 -- sats 45-100 -- vent: wean as able -- Hold SBT/SAT today given hemodynamic instability -- CXR, 07/06: Cardiomegaly with interstitial pulmonary edema. Bilateral pleural effusions. Bibasilar atelectasis vs consolidation. -- ABG: pending Home meds: None Gastrointestinal: No acute issues -- LFTs within normal limits -- diet: NPO -- bowel regimen: None -- ulcer prophylaxis: Pepcid Home meds: None Endocrine: (1) Hypothyroid -- monitor BGs -- Hgb A1c 5.8 -- TFT TSH 14.33, high T4 0.85, within normal limits -- Synthroid Home meds: None Renal: (1) Prerenal azotemia vs TAE; (2) Hypocalcemia; (3) Hypomagnesemia, resolved -- UOP 53 ml/hr -- Cr 1.17 from 1.18 -- Lytes Na 139 from 135 K 4.4 Ca 7.5, replace Mag 2.0 Phos 3.6 -- IVF: NS @ 100 ml/hr Home meds: None Infectious disease: (1) Question of sepsis; (2) Question of bilateral community acquired pneumonia -- Tmax 99.5 -- WBC 9.7 from 8.2 -- Micro 07/05 MRSA Negative Blood No growth to date urine Negative sputum in process Flu A&B negative -- ABX, empiric, x 7 days Rocphein Azithromcyin Home meds: None Neurologic: (1) distant hx of TIA -- Versed gtt for sedation, currently on hold secondary to hypotension -- Fentanyl gtt for pain control, currently on hold secondary to hypotension Home meds: None Hematological: No acute issues -- Hgb 12.2 from 13.5 -- Plt 221 from 239 -- DVT prophylaxis: Therapeutic heparin gtt Home meds: Metoprolol, Rivaroxaban Metabolic: (1) Lactic acidosis -- Lactic acid 2.9, hydrating, follow trend Home meds: None Other: No acute issues Home meds: None Deep vein thrombosis prophylaxis: Therapeutic heparin gtt Dietary: Pepcid Condition: critical Prognosis: guarded Code status: full Disposition: continue ICU Care Family updated at bedside regarding interval events and plan of care Cumulative time spent in the care of this patient (excluding any procedure time) : at least 60 minutes. Patient care included clinical interview (with patient and/or family), bedside exam of the patient, review of labs, x-rays, and other ancillary data, coordination of (respiratory, nursing care, review of patient's records, discussion regarding patients management with involved consultants, primary physician, pharmacists, and other healthcare personnel (dietary, case management , physical/occupational therapy etc.) Critical Care Time:
[2019-07-06] MEDS ORDERED: Amiodarone 150 MG IVPREMIX* 150 MG/100 ML BAG IV ONE ×2 (08:23→08:50)
[2019-07-06] MEDS ORDERED: Amiodarone IV VIAL** 50 MG/ML 3 ML (150 MG) VIAL ONE (08:23)
[2019-07-06] MEDS: Phenylephrine INJ* 50 MG in NS 0.9% IV SCH ×3 (08:36→18:17)
[2019-07-06] MEDS ORDERED: Amiodarone 360 MG IVPREMIX* 360 MG/200 ML BAG IV ONE ×2 (08:47→09:00)
--- NOTE | 2019-07-06 09:04 | CONSULT ---
Subjective Date of Service: 07/06/19 Interval History: Admission Date: 07/05/19 Consult date 07/06/2019 Service: Child Day Care Provider PCP: None CC: Dyspnea, respiratory failure Reason for consult: Cardiogenic shock, atrial fibrillation HPI Mr. Lopez is a 68 year old man who is critically ill intubated on 4 inotropes/ pressors at time of consult. He does not see doctors but his and 2 sons at bedside say he was entirely healthy and active until 2-3 weeks ago. He does not have a known cardiac history except a reported remote TIA until recently, no recent viral illness, does not drink excessively. His checks his BP occasionally and states it is ok. He had been at [facility] 07/04/2019 with dyspnea and atrial flutter. He received IV diltiazem and given script for metoprolol and xarelto to go home. He took a dose of xarelto on Wednesday. He returned later to the ER with worsening dyspnea and given another 10 mg IV cardizem and SBP < 60 mmHg symptomatic after that. He was intubated in [facility] ER. He is empirically being treated for respiratory tract infection does not have a fever or elevated WBC prior to steroids. Prior to AKSHAT/cardioversion, sedation was stopped and able to wean off all pressors/inotropes except 10 of dobutamine. Pmhx: TIA Past Surgical History Hernia Repair lower back surgery Past Social History Smoke: No Alcohol: Occasional Drugs: None Retired Meds: As above, none prior to 07/04 allergies: nkda Medications Active Medications: Amiodarone HCl (Cordarone Tab*) 400 mg PO BID [facility] Chlorhexidine Gluconate (Peridex Mouth Wash 0.12%*) 15 ml TOPICAL Q4H [facility] Last Admin: 07/06/19 03:38 Dose: 15 ml Famotidine (Pepcid Iv*) 20 mg IV SLOW PU BID [facility] Last Admin: 07/05/19 20:00 Dose: 20 mg Fentanyl Citrate (Fentanyl*) 25 mcg IV SLOW PU Q4H PRN PRN Reason: PAIN - SEVERE Last Admin: 07/05/19 13:35 Dose: 50 mcg Heparin Sodium (Porcine) (Heparin Flush Picc/Ml/Cvc(*)) 0 ml FLUSH 0600,1800 [facility]; Protocol Last Admin: 07/06/19 05:15 Dose: Not Given Heparin Sodium (Porcine) (Heparin Vial(*)) 0 units IV .PER PROTOCOL [facility] Last Admin: 07/06/19 08:06 Dose: 5,400 units Vasopressin 100 units/ (Dextrose) 250 mls @ 0 mls/hr IV .(Initial Rate) [facility]; Protocol Last Admin: 07/06/19 07:10 Dose: 6 mls/hr Midazolam HCl 100 mg/ Sodium (Chloride) 100 mls @ 2 mls/hr IV .Q24HR [facility]; Protocol Last Admin: 07/05/19 09:45 Dose: 2 mls/hr Sodium Chloride (Ns 0.9% 1000 Ml) 1,000 mls @ 100 mls/hr IV PER RATE [facility] Last Admin: 07/05/19 11:00 Dose: 100 mls/hr Fentanyl Citrate (Fentanyl Infusion Bag 50 Mcg/Ml 50 Ml) 2,500 mcg in 50 mls @ 1 mls/hr IV Q48H [facility]; Protocol Last Admin: 07/05/19 14:23 Dose: 1 mls/hr Azithromycin (Zithromax 500 Mg/250 Ml) 500 mg in 250 mls @ 250 mls/hr IVPB Q24H [facility] Last Admin: 07/06/19 06:26 Dose: 250 mls/hr Ceftriaxone Sodium 1 gm/ (Sodium Chloride) 50 mls @ 100 mls/hr IVPB Q24H [facility] Last Admin: 07/06/19 05:13 Dose: 100 mls/hr Norepinephrine Bitartrate (Levophed 16 Mcg/Ml Premix*) 4,000 mcg in 250 mls @ 18.75 mls/hr IV .INITIAL RATE [facility]; Protocol Dobutamine HCl/Dextrose (Dobutamine 2000 Mcg/Ml Ivpremx*) 500 mg in 250 mls @ 46.32 mls/hr IV Q5H [facility]; Protocol Phenylephrine HCl 50 mg/ (Sodium Chloride) 250 mls @ 30 mls/hr IV Q8H [facility]; Protocol Heparin Sodium/Dextrose (Heparin Drip 25,000 Units(*)) 25,000 units in 500 mls @ 0 mls/hr IV PER RATE [facility]; Protocol Last Admin: 07/06/19 08:06 Dose: 23 mls/hr Calcium Gluconate 2 gm/ Sodium (Chloride) 120 mls @ 60 mls/hr IV ONCE ONE Stop: 07/06/19 11:44 Amiodarone HCl (Nexterone 360 Mg/200 Ml Ivpremix*) 360 mg in 200 mls @ 33.333 mls/hr IV ONCE ONE Stop: 07/06/19 14:59 Amiodarone HCl (Nexterone 360 Mg/200 Ml Ivpremix*) 360 mg in 200 mls @ 16.667 mls/hr IV .SEE PROTOCOL [facility]; Protocol Stop: 07/07/19 08:59 Levothyroxine Sodium (Synthroid Tab*) 50 mcg PO DAILY@0600 [facility] Home Medications: Metoprolol Succinate XL TAB* [Toprol XL TAB*] 50 mg PO DAILY 07/05/19 [History Confirmed 07/05/19] Rivaroxaban TAB(*) [Xarelto 20 mg] 20 mg PO DAILY 07/05/19 [History Confirmed ] Review of Systems - Measurements Intake and Output: Intake and Output Last 24 Hours 07/04/19 07/05/19 07/06/19 07/07/19 06:59 06:59 06:59 06:59 Intake Total 5023 Output Total 644 Balance 4379 Weight 172 lb 170 lb 3.15 oz Intake: IV Fluids 3028 NS (0.9%) 2508 IVPB 241 ABX - CEFTRIAXONE 62 Calcium 74 Magnesium 105 Medicated IV 1754 Albumin 100 Levophed 1460 Levothyroxine 194 Output: Ald[place] 644 - Review of Systems Review of Systems Statement: unobtainable due to mental status Objective Vital Signs: Temp Pulse Resp BP Pulse Ox 99.3 F 132 17 124/91 100 07/06/19 08:05 07/06/19 08:05 07/06/19 06:00 07/06/19 08:01 07/06/19 08:05 Oxygen Devices in Use Now: Endotracheal Tube, Mechanical Ventilator Appearance: intubated, sedated, ill appearing. ET tube in place Ears/Nose/Mouth/Throat: Clear Oropharnyx Neck: Trachea Midline, - - uncertain jvp Respiratory: - - transmitted breath sounds on ventilator Cardiovascular: - - tachycardic, irregular, no significant murmur Abdominal: - - soft, non-tender Extremities: No Clubbing, Cyanosis Skin: No Rash or Ulcers, - - cool and hypoperfused Neurological: - - sedated Laboratory Results: 07/06/19 05:20 07/06/19 05:20 INR (Anticoag Therapy) 1.27 (0.82-1.09) H 07/05/19 07:30 APTT 29.0 seconds (26.0-38.0) 07/05/19 07:30 Total Bilirubin 0.50 mg/dL (0.2-1.0) 07/05/19 07:30 AST 28 U/L (13-39) 07/05/19 07:30 ALT 30 U/L (7-52) 07/05/19 07:30 Alkaline Phosphatase 99 U/L (34-104) 07/05/19 07:30 CK-MB (CK-2) 7.1 ng/mL (0.6-6.3) H 07/05/19 07:30 B-Natriuretic Peptide 485 pg/mL (<=100) H 07/06/19 05:20 Total Protein 6.0 g/dL (6.4-8.9) L 07/05/19 07:30 Albumin 3.6 g/dL (3.2-5.2) 07/05/19 07:30 Globulin 2.4 g/dL (2-4) 07/05/19 07:30 Albumin/Globulin Ratio 1.5 (1-3) 07/05/19 07:30 Triglycerides 130 mg/dL 07/05/19 07:30 Cholesterol 150 mg/dL 07/05/19 07:30 LDL Cholesterol 77 mg/dL 07/05/19 07:30 HDL Cholesterol 46.6 mg/dL 07/05/19 07:30 TSH 14.33 mcIU/mL (0.34-5.60) H 07/05/19 07:30 07/05/19 07/06/19 07:30 07:10 Troponin I 0.01 0.03 H* Diagnostic Imaging: Transthoracic Echocardiogram Study Date: 07/05/2019 Summary: - Left ventricle: The cavity size is mildly dilated. Wall thickness is mildly increased. Systolic function is severely reduced. The estimated ejection fraction is 15-20%. Multiple regional wall motion abnormalities: [place] appears akinetic, posterior lateral wall and very base move best. - Right ventricle: Systolic function is moderately reduced. - Mitral valve: There is moderate to severe regurgitation. - Tricuspid valve: There is moderate-severe regurgitation. - Pericardium, extracardiac: There is a left pleural effusion. - Pulmonary arteries: Systolic pressure is within the normal range but may be underestimated. The peak pressure during systole by Doppler is 26.0 mm Hg. Exam Date: 07/05/19 Exam: CT Angiography Chest With Contrast IMPRESSION: 1. No acute pulmonary embolic disease. 2. Cardiomegaly with an enlarged left and right atria. Moderate bilateral pleural effusion with associated atelectasis. 3. Engorgement of the pulmonary venous system. This may represent fluid overload. EKG Data: telemetry overnight atrial flutter EKG 07/05/2019 2 AM: Atrial flutter, rapid non-specific t changes 5 AM: afib/flutter 130 bpm, nonspecific st/t changes 7 AM: similar atrial fibrillation 100 bpm, TWI v4-v6 ekg this am appears atrial flutter 130 bpm Assessment/Plan 1. Biventricular cardiogenic shock with severe systolic HF - Hopefully primarily secondary to # 2 - s/p AKSHAT/cardioversion this AM 07/06/2019 - Doubt pneumonia - No evidence of an acute type 1 [place] 2. Atrial flutter - Uncertain atypical or typical given degree of atrial dilation - Also probably atrial fibrillation at times 3. 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 Respiratory failure - on ventilator - Heparin gtt therapeutic for now - Overlap IV amiodarone protocol with 400 mg po bid for today - Currently only on 10 mg levophed, wean as tolerated. Hold off on AceI/BB today. s/p IV digoxin 500 mcg x 1 this AM - Sedation, ventilator management and antibiotics per Child Day Care Provider, Dr. Coreas - Keep I/O negative as tolerated, hopefully baptism of sinus rhythm will begin auto-diuresis, if not may need IV diuretics to intubated - Will follow closely 90 minutes bedside direct critical care time provided
--- NOTE | 2019-07-06 09:25 | PROCNOTE ---
Cardiology Procedure Note External electrical cardioversion 07/06/2019 Patient intubated critically ill in poorly tolerated atrial flutter, consent obtained from family IV heparin gtt anticoagulated with See unit records for sedation AKSHAT no LA/MADELINE thrombus Patient cardioverted from atrial flutter to NSR with 120 external electrical sync x 1 pre-treated with 150 mg IV amiodarone No complications
[2019-07-06] MEDS ORDERED: Calcium Gluconate INJ* 2 GM in NS 0.9% 100 ML* 100 ML IV ONE (09:45)
--- NOTE | 2019-07-06 10:02 | TEE ---
*[facility]* [place] [address] Fax #: [phone] Transesophageal Echocardiogram Patient: [place] Lopez : 1950 Study Date: 07/06/2019 Age: 68 Gender: M HR: 130 bpm Height: 64.2 in /163 cm BSA: 1.89 m^2 Weight: 169.4 lb /77 kg BMI: 29 kg/m^2 *Scruff Worker: Kelin Cates [facility] [place] *Referring Physician: * Mathesu Montes MD *Reading Physician: Matheus Coley MD Indications: Atrial Flutter. History: Transient ischemic attack. PMH: Cardiomyopathy. Conclusions Summary: - Left ventricle: The cavity size is dilated. Systolic function is severely reduced. The estimated ejection fraction is 10-15%. Severe diffuse hypokinesis. - Right ventricle: The cavity size is mildly dilated. Systolic function is moderately to severely reduced. - Left atrium: The atrium is severely dilated. There is no evidence of a thrombus in the atrial cavity or appendage. - Right atrium: The atrium is moderately dilated. - Mitral valve: There is moderate regurgitation that is functional/secondary. Mitral regurgitation was evaluated with patient in rapid atrial flutter with SBP ~90 mmHg. - Tricuspid valve: There is mild regurgitation. Recommendations: No prior AKSHAT's available for comparison. Study data: Diagnostic Transesophageal Echocardiogram Consent: The risks and benefits of the procedure, including alternatives were discussed with the patient and/or their health care route sales representative and written informed consent was obtained. Procedure: Initial setup: The patient was in the fasting state. Surface ECG leads, heart rate, heart rhythm, blood pressure measurements, pulse oximetric signals, and mainstream end-tidal CO2 tracings were monitored throughout the procedure. Sedation. Moderate sedation was administered by nursing staff. History and physical as well as labs were reviewed. An oral bite block was inserted for protection of oral dentition. The patient was placed in the left lateral decubitus position. Topical anesthesia was obtained using viscous lidocaine. A transesophageal probe was inserted by the attending agriculture teacher. Transesophageal echocardiography was performed, image quality was good, and all standard views were attempted within the limitations of patient tolerance and safety. Multiple 2D, color flow Doppler and spectral Doppler images were obtained. The transesophageal probe was removed. A bubble study was performed. Location: ICU Patient status: Inpatient. Patient room number: 7. Study completion: The patient tolerated the procedure well. There were no complications. Administered medications: Midazolam, 6mg. Fentanyl, 100mcg. Rhythm: Atrial flutter. Findings Left ventricle: The cavity size is dilated. Systolic function is severely reduced. The estimated ejection fraction is 10-15%. Severe diffuse hypokinesis. Right ventricle: The cavity size is mildly dilated. Systolic function is moderately to severely reduced. Left atrium: The atrium is severely dilated. There is no evidence of a thrombus in the atrial cavity or appendage. Right atrium: The atrium is moderately dilated. There is the appearance of a Chiari network. Atrial septum: A PFO is not demonstrated by color Doppler or agitated saline contrast. Negative bubble study. Mitral valve: The leaflets are normal thickness. There is no evidence of stenosis. There is moderate regurgitation that is functional/secondary. Mitral regurgitation was evaluated with patient in rapid atrial flutter with SBP ~90 mmHg. Aortic valve: The leaflets are normal thickness. There is no evidence of stenosis. There is no significant regurgitation. Tricuspid valve: The leaflets are normal thickness. There is no evidence of stenosis. There is mild regurgitation. Pulmonic valve: The leaflets are normal thickness. There is no evidence of stenosis. There is trace regurgitation. Aorta: The aortic root appears normal. The aortic arch appears normal. The ascending aorta appears normal. Pericardium: There is no pericardial effusion. Pulmonary arteries: Not well visualized. Systemic veins: Inferior vena cava: The vessel is normal in size. Superior vena cava: The vessel is appears normal. Pulmonary veins: The flow of the pulmonary veins appears normal. Measurements Aortic valve Value Ref Mitral valve continued Value Ref Chante diam, ED 2.2 cm ---- Max MR v 4.01 m/sec ---- Chante diam/bsa, ED 1.2 cm/m^2 ---- Regurg VTI 96.2 cm ---- ERO, PISA 19.48 cm^2 ---- Mitral valve Value Ref Peak E 0.91 m/sec ---- Aortic root Value Ref Decel time 87 ms ---- Root diam 3.1 cm <4.1 Peak grad, D 3.3 mm Hg ---- Root max diam, ED 3.1 cm <4.1 Legend: (L) and (H) kimberly values outside specified reference range. Prepared and electronically signed by Matheus Montes MD 07/06/2019 10:01
[2019-07-06] MEDS: Amiodarone TAB* 400 MG PO SCH ×2 (10:58→19:58)
[2019-07-06] MEDS: Famotidine IV* 10 MG/ML 2 ML (20 mg) IV SLOW PU SCH ×2 (10:58→19:58)
[2019-07-06] MEDS: Midazolam IV for DRIP* 100 MG in NS 0.9% 100 ML* 80 ML IV SCH (11:10)
[2019-07-06] MEDS ORDERED: Albumin Human 25%* 25 GM/100 ML BTL IV ONE (13:09)
[2019-07-06] MEDS ORDERED: NS 0.9% 1000 ML** 1,000 ML IV SCH (13:46)
[2019-07-06] MEDS: Amiodarone 360 MG IVPREMIX* 360 MG/200 ML BAG IV SCH (14:56)
[2019-07-06 21:15] LABS: Hematocrit 36 % (42-52); Hemoglobin 12.1 g/dL (14.0-18.0); Mean Corpuscular HGB Conc 33 g/dL (31-36); Mean Corpuscular Hemoglobin 32 pg (27-31); Mean Corpuscular Volume 97 fL (80-94); Mean Platelet Volume 8.5 fL (7.4-10.4); Platelet Count 211 10^3/uL (150-450); Red Blood Count 3.73 10^6 /uL (4.18-5.48); Red Cell Distribution Width 14 % (10-15); White Blood Count 9.9 10^3/uL (3.5-10.8)
[2019-07-06 21:41] LABS: Albumin 3.9 g/dL (3.2-5.2); Albumin/Globulin Ratio 1.9 (1-3); BUN/Creatinine Ratio 19.7 (8-20); Calcium 7.5 mg/dL (8.6-10.3); EGFR Non-African American 37.2 (>60); Globulin 2.1 g/dL (2-4); Magnesium 1.9 mg/dL (1.9-2.7); Phosphorus 3.9 mg/dL (2.5-5.0); Potassium 4.9 mmol/L (3.5-5.0); Total Bilirubin 0.4 mg/dL (0.2-1.0)
[2019-07-06] MEDS ORDERED: Calcium Gluconate INJ* 1 GM in NS 0.9% 50 ML* 50 ML IV ONE (23:00)
[2019-07-07] MEDS: Chlorhexidine MOUTHWASH 0.12%* 15 ML UDC TOPICAL SCH ×6 (00:01→20:26)
[2019-07-07] MEDS: Amiodarone 360 MG IVPREMIX* 360 MG/200 ML BAG IV SCH (03:00)
[2019-07-07] MEDS: DRIP IV SCH ×2 (03:01→05:45)
[2019-07-07] MEDS: Phenylephrine INJ* 50 MG in NS 0.9% IV SCH (03:01)
[2019-07-07] MEDS: DOBUTAMINE IV SCH ×2 (03:01→05:45)
[2019-07-07 05:08] LABS: Hematocrit 33 % (42-52); Hemoglobin 11.2 g/dL (14.0-18.0); Mean Corpuscular HGB Conc 34 g/dL (31-36); Mean Corpuscular Hemoglobin 33 pg (27-31); Mean Corpuscular Volume 96 fL (80-94); Mean Platelet Volume 8.5 fL (7.4-10.4); Platelet Count 166 10^3/uL (150-450); Red Blood Count 3.42 10^6 /uL (4.18-5.48); Red Cell Distribution Width 14 % (10-15); White Blood Count 7.3 10^3/uL (3.5-10.8)
[2019-07-07 05:24] LABS: BUN/Creatinine Ratio 22.1 (8-20); Blood Urea Nitrogen 38 mg/dL (6-24); CO2 Carbon Dioxide 15 mmol/L (22-32); Calcium 7.9 mg/dL (8.6-10.3); EGFR African American 48.4 (>60); Glucose 111 mg/dL (70-100); Magnesium 1.9 mg/dL (1.9-2.7); Phosphorus 3.6 mg/dL (2.5-5.0); Potassium 4.5 mmol/L (3.5-5.0); Sodium 138 mmol/L (135-145)
[2019-07-07 05:26] LABS: Anion Gap 8 mmol/L (2-11); Chloride 115 mmol/L (101-111)
[2019-07-07 05:28] LABS: Troponin I 0.04 ng/mL (<0.03)
[2019-07-07] MEDS: cefTRIAXone(*) 1 GM in NS 0.9% 50 ML* 50 ML IVPB SCH (05:45)
[2019-07-07] MEDS: Levothyroxine TAB* 25 MCG TAB PO SCH (06:18)
[2019-07-07] MEDS: Azithromycin 500 mg/250 ml NS 500 MG/250 ML BAG IVPB SCH (06:19)
[2019-07-07] MEDS: Famotidine IV* 10 MG/ML 2 ML (20 mg) IV SLOW PU SCH ×2 (08:05→20:27)
[2019-07-07] MEDS: Amiodarone TAB* 400 MG PO SCH ×2 (08:05→20:27)
--- NOTE | 2019-07-07 08:23 | PN ---
Subjective Date of Service: 07/07/19 Interval History: f/u cardiogenic shock, atrial flutter/fibrillation Intubated, sedated CXR with worsening CHF, remains afebrile on low dose levophed tae cr peak 1.83 tele sinus rhythm overnight Medications Active Medications: Amiodarone HCl (Cordarone Tab*) 400 mg PO BID [facility] x 8 doses with 200 mg po daily (ordered) Chlorhexidine Gluconate (Peridex Mouth Wash 0.12%*) 15 ml TOPICAL Q4H [facility] Last Admin: 07/07/19 08:05 Dose: 15 ml Famotidine (Pepcid Iv*) 20 mg IV SLOW PU BID [facility] Last Admin: 07/07/19 08:05 Dose: 20 mg Fentanyl Citrate (Fentanyl*) 25 mcg IV SLOW PU Q4H PRN PRN Reason: PAIN - SEVERE Last Admin: 07/05/19 13:35 Dose: 50 mcg Heparin Sodium (Porcine) (Heparin Flush Picc/Ml/Cvc(*)) 0 ml FLUSH 0600,1800 [facility]; Protocol Last Admin: 07/07/19 06:19 Dose: 1 ml Heparin Sodium (Porcine) (Heparin Vial(*)) 0 units IV .PER PROTOCOL [facility] Last Admin: 07/06/19 08:06 Dose: 5,400 units Fentanyl Citrate (Fentanyl Infusion Bag 50 Mcg/Ml 50 Ml) 2,500 mcg in 50 mls @ 1 mls/hr IV Q48H [facility]; Protocol Last Admin: 07/05/19 14:23 Dose: 1 mls/hr Azithromycin (Zithromax 500 Mg/250 Ml) 500 mg in 250 mls @ 250 mls/hr IVPB Q24H [facility] Last Admin: 07/07/19 06:19 Dose: 250 mls/hr Ceftriaxone Sodium 1 gm/ (Sodium Chloride) 50 mls @ 100 mls/hr IVPB Q24H [facility] Last Admin: 07/07/19 05:45 Dose: 100 mls/hr Norepinephrine Bitartrate (Levophed 16 Mcg/Ml Premix*) 4,000 mcg in 250 mls @ 18.75 mls/hr IV .INITIAL RATE [facility]; Protocol Last Admin: 07/06/19 22:54 Dose: 45 mls/hr Heparin Sodium/Dextrose (Heparin Drip 25,000 Units(*)) 25,000 units in 500 mls @ 0 mls/hr IV PER RATE [facility]; Protocol Last Admin: 07/06/19 08:06 Dose: 23 mls/hr Amiodarone HCl (Nexterone 360 Mg/200 Ml Ivpremix*) 360 mg in 200 mls @ 16.667 mls/hr IV .SEE PROTOCOL [facility]; Protocol Stop: 07/07/19 08:59 Last Admin: 07/07/19 03:00 Dose: 16.667 mls/hr Midazolam HCl 100 mg/ Sodium (Chloride) 100 mls @ 2 mls/hr IV Q24H [facility]; Protocol Last Admin: 07/06/19 11:10 Dose: 2 mls/hr Sodium Chloride (Ns 0.9% 1000 Ml) 1,000 mls @ 50 mls/hr IV PER RATE [facility] Last Admin: 07/06/19 13:47 Dose: 50 mls/hr Levothyroxine Sodium (Synthroid Tab*) 50 mcg PO DAILY@0600 [facility] Last Admin: 07/07/19 06:18 Dose: 50 mcg Objective Vital Signs: Temp Pulse Resp BP Pulse Ox 98.6 F 62 15 80/60 97 07/07/19 07:00 07/07/19 07:00 07/07/19 07:00 07/07/19 07:00 07/07/19 07:00 Oxygen Devices in Use Now: Endotracheal Tube, Mechanical Ventilator Appearance: intubated, sedated, ill appearing. ET tube in place Ears/Nose/Mouth/Throat: Clear Oropharnyx Neck: Trachea Midline, - - uncertain jvp Respiratory: - - transmitted breath sounds on ventilator Cardiovascular: - - rrr, distant Abdominal: - - soft, non-tender Extremities: No Clubbing, Cyanosis Skin: No Rash or Ulcers, - - adequately perfused Neurological: - - sedated Laboratory Results: 07/07/19 04:41 07/07/19 04:41 INR (Anticoag Therapy) 1.27 (0.82-1.09) H 07/05/19 07:30 APTT 63.2 seconds (26.0-38.0) H 07/07/19 04:41 Total Bilirubin 0.40 mg/dL (0.2-1.0) 07/06/19 21:00 AST 129 U/L (13-39) H 07/06/19 21:00 ALT 128 U/L (7-52) H 07/06/19 21:00 Alkaline Phosphatase 64 U/L (34-104) 07/06/19 21:00 CK-MB (CK-2) 7.1 ng/mL (0.6-6.3) H 07/05/19 07:30 B-Natriuretic Peptide 234 pg/mL (<=100) H 07/07/19 04:41 Total Protein 6.0 g/dL (6.4-8.9) L 07/06/19 21:00 Albumin 3.9 g/dL (3.2-5.2) 07/06/19 21:00 Globulin 2.1 g/dL (2-4) 07/06/19 21:00 Albumin/Globulin Ratio 1.9 (1-3) 07/06/19 21:00 Triglycerides 130 mg/dL 07/05/19 07:30 Cholesterol 150 mg/dL 07/05/19 07:30 LDL Cholesterol 77 mg/dL 07/05/19 07:30 HDL Cholesterol 46.6 mg/dL 07/05/19 07:30 TSH 14.33 mcIU/mL (0.34-5.60) H 07/05/19 07:30 07/05/19 07/06/19 07/07/19 07:30 07:10 04:41 Troponin I 0.01 0.03 H* 0.04 H* Diagnostic Imaging: Transesophageal Echocardiogram Conclusions Summary: - Left ventricle: The cavity size is dilated. Systolic function is severely reduced. The estimated ejection fraction is 10-15%. Severe diffuse hypokinesis. - Right ventricle: The cavity size is mildly dilated. Systolic function is moderately to severely reduced. - Left atrium: The atrium is severely dilated. There is no evidence of a thrombus in the atrial cavity or appendage. - Right atrium: The atrium is moderately dilated. - Mitral valve: There is moderate regurgitation that is functional/secondary. Mitral regurgitation was evaluated with patient in rapid atrial flutter with SBP ~90 mmHg. - Tricuspid valve: There is mild regurgitation. Exam Date: 07/05/19 Exam: CT Angiography Chest With Contrast IMPRESSION: 1. No acute pulmonary embolic disease. 2. Cardiomegaly with an enlarged left and right atria. Moderate bilateral pleural effusion with associated atelectasis. 3. Engorgement of the pulmonary venous system. This may represent fluid overload. EKG Data: telemetry overnight atrial flutter EKG 07/05/2019 2 AM: Atrial flutter, rapid non-specific t changes 5 AM: afib/flutter 130 bpm, nonspecific st/t changes 7 AM: similar atrial fibrillation 100 bpm, TWI v4-v6 ekg 07/06 am appears atrial flutter 130 bpm ekg 07/07/2019: Nsr, ischemic appearing TWI precordial leads Assessment/Plan 1. Biventricular cardiogenic shock with severe systolic HF - Hopefully primarily secondary to # 2 and will recovery time with quaker of sinus rhythm and cardiomyopathy medications - s/p AKSHAT/cardioversion 07/06/2019 - Doubt pneumonia - No evidence of an acute type 1 [place] 2. Atrial flutter - Uncertain atypical or typical given degree of atrial dilation - Also probably atrial fibrillation at times 3. 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 Respiratory failure - on ventilator 5. Hypothyroidism 6. TAE - Continue heparin gtt therapeutic for now - Finish current amiodarone gtt today, oral amiodarone load/dosing adjusted - Wean levophed as tolerated - Hold off on AceI/BB for now - Sedation, ventilator management, thyroid and antibiotics per Recreation Therapy Aide - Keep I/O negative as tolerated, hopefully quaker of sinus rhythm and recovery of TAE will begin auto-diuresis, if not may need IV diuretics soon to extubate - Echo ordered for 07/09/2019 - Pending clinical course, patient may benefit from diagnostic cardiac catheterization to determine an ischemic component +/- revascularization prior to discharge.
[2019-07-07] MEDS ORDERED: Calcium Carbonate LIQ* 1,250 MG/5 ML UDC PO ONE (09:34)
[2019-07-07] MEDS ORDERED: Magnesium Sulfate 1 GM IV* 1 GM/100 ML BAG IV ONE (09:35)
--- NOTE | 2019-07-07 09:38 | PN ---
Date of Service: 07/07/19 - HD 3 Critical Care Services: 68 yo M with PMH notable only for distant hx of TIA and no regular medical followup presented to [place] ED on 07/04 with shortness of breath. At that time he was found to be in atrial flutter; per patient he has not prior history of arrhythmia. He was given cardizem and sent home with Rx for Metoprolol and Rivaroxaban. He returned to the ED later that evening for worsening shortness of breath. He was give 10 mg of Cardizem with subsequent development of symptomatic hypotension with SBP < 60. He was transferred to [place] ED for further workup and care. In [place] ED he was noted to be tachycardic but in sinus rhythm. He had increasing work of breathing and was intubated for acute hypoxic respiratory failure. CXR showed bilateral effusions and infiltrates. CTA chest negative for PE. He was started on Levophed for septic shock, Rocephin and Azithromycin for suspected community acquired pneumonia and admitted to ICU for further care. 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 Vasopressin and Neosynephrie were added. Stat echo revealed poor EF. Cardiology was consulted and is concerned for tachycardic cardiomyopathy as cause for hemodynamic instability. AKSHAT and cardioverted successfully. Required Levophed and Maury to maintain MAPs. ABG with persistent metabolic acidosis 07/07: Weaned off Levophed by morning. Still with metabolic acidosis on ABG Vital Signs: Temp Pulse Resp BP SpO2 FiO2 98.6 F 60 13 91/65 97 35 07/07/19 08:20 07/07/19 08:20 07/07/19 08:00 07/07/19 08:00 07/07/19 08:20 07/07 07:32 Physical Exam: Gen: Intubated, sedated HEENT: ETT in place, less pale Lungs: CTAB Cardiac: RRR Abdomen: soft NTND Extremities: warm, dry, edematous Neuro: sedated. Fluid Balance (Past 24 Hours): I= O= Net Intake & Output 07/05/19 07/06/19 07/07/19 07/08/19 06:59 06:59 06:59 06:59 Intake Total 5023 4877.6 Output Total 644 568 40 Balance 4379 4309.6 -40 Weight 172 lb 170 lb 3.15 oz 172 lb 6.287 oz Intake: IV Fluids 3028 2335 Calcium Gluconate 70 NS (0.9%) 2508 2265 IVPB 241 260 ABX - CEFTRIAXONE 62 Albumin 25% 140 Calcium Gluconate 74 120 Magnesium 105 Medicated IV 1754 2143.6 Albumin 100 CC - Amiodarone 552 CC - Dobutamine 41 CC - Phenylephrine/ 310.3 Neosynephrine CC - Vasopressin/ 8.3 Pitressin Heparin 244 Levophed 1460 988 Levothyroxine 194 Heparin 139 Output: Aldrich 644 568 40 Labs: Laboratory Results - last 24 hr 07/06/19 07/06/19 07/06/19 09:29 09:29 14:06 WBC RBC Hgb Hct MCV MCH MCHC RDW Plt Count MPV APTT Patient Temperature Not Reportable ABG pH 7.22 L 7.22 L ABG pH (Temp Correct) Not Reportable ABG pCO2 33 L 33 L ABG pCO2 (Temp Corrct Not Reportable ABG pO2 161 H 118 H ABG pO2 (Temp Correct Not Reportable ABG HCO3 14.7 L 14.7 L ABG O2 Saturation 100.0 H 99.5 H ABG Base Excess -13.1 L -13.1 L Respiration Rate Not Reportable O2 Delivery Device vent Ventilator Type Not Reportable Vent Mode Not Reportable FiO2 100 Inspiratory Time Not Reportable PEEP Not Reportable Pressure Support Not Reportable Pressure Control Not Reportable EPAP Not Reportable IPAP Not Reportable BiPAP Not Reportable Sodium Potassium Chloride Carbon Dioxide Anion Gap BUN Creatinine Est GFR ( Amer) Est GFR (Non-Af Amer) BUN/Creatinine Ratio Glucose Lactic Acid 1.7 Calcium Phosphorus Magnesium Total Bilirubin AST ALT Alkaline Phosphatase Troponin I B-Natriuretic Peptide Total Protein Albumin Globulin Albumin/Globulin Ratio 07/06/19 07/06/19 07/06/19 14:06 20:55 21:00 WBC RBC Hgb Hct MCV MCH MCHC RDW Plt Count MPV APTT 146.7 H* Patient Temperature ABG pH 7.19 L* ABG pH (Temp Correct) ABG pCO2 34 L ABG pCO2 (Temp Corrct ABG pO2 94 ABG pO2 (Temp Correct ABG HCO3 13.8 L ABG O2 Saturation 98.7 H ABG Base Excess -14.2 L Respiration Rate O2 Delivery Device Ventilator Type Vent Mode FiO2 Inspiratory Time PEEP Pressure Support Pressure Control EPAP IPAP BiPAP Sodium Potassium Chloride Carbon Dioxide Anion Gap BUN Creatinine Est GFR ( Amer) Est GFR (Non-Af Amer) BUN/Creatinine Ratio Glucose Lactic Acid Calcium Phosphorus Magnesium Total Bilirubin AST ALT Alkaline Phosphatase Troponin I B-Natriuretic Peptide 307 H Total Protein Albumin Globulin Albumin/Globulin Ratio 07/06/19 07/06/19 07/06/19 21:00 21:00 21:00 WBC 9.9 RBC 3.73 L Hgb 12.1 L Hct 36 L MCV 97 H MCH 32 H MCHC 33 RDW 14 Plt Count 211 MPV 8.5 APTT Patient Temperature ABG pH ABG pH (Temp Correct) ABG pCO2 ABG pCO2 (Temp Corrct ABG pO2 ABG pO2 (Temp Correct ABG HCO3 ABG O2 Saturation ABG Base Excess Respiration Rate O2 Delivery Device Ventilator Type Vent Mode FiO2 Inspiratory Time PEEP Pressure Support Pressure Control EPAP IPAP BiPAP Sodium 138 Potassium 4.9 Chloride 115 H Carbon Dioxide 12 L* Anion Gap 11 BUN 36 H Creatinine 1.83 H Est GFR ( Amer) 45.0 Est GFR (Non-Af Amer) 37.2 BUN/Creatinine Ratio 19.7 Glucose 114 H Lactic Acid 1.1 Calcium 7.5 L Phosphorus 3.9 Magnesium 1.9 Total Bilirubin 0.40 AST 129 H ALT 128 H Alkaline Phosphatase 64 Troponin I B-Natriuretic Peptide Total Protein 6.0 L Albumin 3.9 Globulin 2.1 Albumin/Globulin Ratio 1.9 07/06/19 07/07/19 07/07/19 21:00 04:41 04:41 WBC RBC Hgb Hct MCV MCH MCHC RDW Plt Count MPV APTT 83.9 H Patient Temperature ABG pH ABG pH (Temp Correct) ABG pCO2 ABG pCO2 (Temp Corrct ABG pO2 ABG pO2 (Temp Correct ABG HCO3 ABG O2 Saturation ABG Base Excess Respiration Rate O2 Delivery Device Ventilator Type Vent Mode FiO2 Inspiratory Time PEEP Pressure Support Pressure Control EPAP IPAP BiPAP Sodium 138 Potassium 4.5 Chloride 115 H Carbon Dioxide 15 L Anion Gap 8 BUN 38 H Creatinine 1.72 H Est GFR ( Amer) 48.4 Est GFR (Non-Af Amer) 40.0 BUN/Creatinine Ratio 22.1 H Glucose 111 H Lactic Acid Calcium 7.9 L Phosphorus 3.6 Magnesium 1.9 Total Bilirubin AST ALT Alkaline Phosphatase Troponin I 0.04 H* B-Natriuretic Peptide 234 H Total Protein Albumin Globulin Albumin/Globulin Ratio 07/07/19 07/07/19 04:41 04:41 WBC 7.3 RBC 3.42 L Hgb 11.2 L Hct 33 L MCV 96 H MCH 33 H MCHC 34 RDW 14 Plt Count 166 MPV 8.5 APTT 63.2 H Patient Temperature ABG pH ABG pH (Temp Correct) ABG pCO2 ABG pCO2 (Temp Corrct ABG pO2 ABG pO2 (Temp Correct ABG HCO3 ABG O2 Saturation ABG Base Excess Respiration Rate O2 Delivery Device Ventilator Type Vent Mode FiO2 Inspiratory Time PEEP Pressure Support Pressure Control EPAP IPAP BiPAP Sodium Potassium Chloride Carbon Dioxide Anion Gap BUN Creatinine Est GFR ( Amer) Est GFR (Non-Af Amer) BUN/Creatinine Ratio Glucose Lactic Acid Calcium Phosphorus Magnesium Total Bilirubin AST ALT Alkaline Phosphatase Troponin I B-Natriuretic Peptide Total Protein Albumin Globulin Albumin/Globulin Ratio Studies: 07/07 CXR - moderate bilateral pleural effusions with bilateral pulmonary edema 07/06 TTE - completed, read pending EKG - Atrial flutter, 2:1 07/05 CXR - bilateral pleural effusions. bibasilar actelectais vs consolidation. cardiomegaly with pulmonary intersitital edema TTE - mildly dilated LV. mildly increased wall thickness. EF 15-20%. Multiple regional wall motion abnormalities: apex akinetic, posterior lateral wall and base move best. RV with moderately reduced systolic function. MV with moderate to severe regurgitation. TV with moderate to severe regurgitation. pulmonary artery pressure appears within normal limits. CTA chest - no acute pulmonary embolic disease. cardiomegaly with enlarged bilateral atria. moderate bilateral pleural effusions. engorgement of pulmonary venous system. Nutrition: NPO Impression: 68 yo M admitted 07/05 with shock, bilateral infiltrates and paroxysmal atrial flutter. Found to have severely reduced EF on TTE. Significant episodes of profound hypotension coinciding with episodes of atrial flutter. On empiric abx for bilateral infiltrates, though given findings on TTE, now more likely pulmonary edema from heart failure. Cardioverted on 07/06 into NSR. Plan: Hospital Diagnoses: #1: Cardiogenic shock #2: Paroxysmal Atrial fib/flutter with RVR #3: Acute hypoxic respiratory failure #4: Acute systolic CHF Cardiovascular: (1) Cardiogenic shock; (2) Paroxysmal Atrial fib/flutter with RVR; (3) Acute systolic congestive heart failure; (4) Moderate to severe MR and TR -- HR 88-133 -- SBP 79-137 -- Telemetry -- TTE, 07/05: LVEF 15-20%. Multiple regional wall motion abnormalities. -- repeat TTE on 07/09/2019 -- Cardiac markers Trop 0.04 from 0.03 BNP 234 from 307 -- Vasopressors Levophed weaned off Neosyneprhine weaned off -- Therapeutic heparin gtt -- Amiodarone gtt and PO -- Lasix x 1 -- Cardiology following Home meds: Metoprolol Pulmonary: (1) Acute hypoxic respiratory failure; (2) Pulmonary edema and bilateral pleural effusions, secondary to CHF; (3) Question of bilateral community acquired pneumonia -- RR 10-19 -- sats 95-100 -- vent: wean as able -- Hold SBT/SAT today given hemodynamic instability -- CXR, 07/07: bilateral effusions and pulmonary edema -- ABG: pending Home meds: None Gastrointestinal: No acute issues -- LFTs within normal limits -- diet: NPO -- bowel regimen: None -- ulcer prophylaxis: Pepcid Home meds: None Endocrine: (1) Hypothyroid -- monitor BGs -- Hgb A1c 5.8 -- TFT TSH 14.33, high T4 0.85, within normal limits -- Synthroid Home meds: None Renal: (1) Prerenal azotemia vs TAE; (2) Hypocalcemia; (3) Hypomagnesemia, resolved -- UOP 24 ml/hr -- Cr 1.72 from 1.83 -- Lytes Na 138 from 138 K 4.5 Ca 7.9, replace Mag 1.9, replace Phos 3.6 -- IVF: NS @ 50 ml/hr, HLIVF -- Lasix x 1 Home meds: None Infectious disease: (1) Question of sepsis; (2) Question of bilateral community acquired pneumonia -- Tmax 100.2 -- WBC 7.3 from 9.9 -- Micro 12/4 MRSA Negative Blood No growth to date urine Negative sputum No growth to date Flu A&B negative -- ABX, empiric, x 7 days Rocphein Azithromcyin Home meds: None Neurologic: (1) distant hx of TIA -- Versed gtt for sedation -- Fentanyl gtt for pain control Home meds: None Hematological: No acute issues -- Hgb 11.2 from 12.1 -- Plt 166 from 211 -- DVT prophylaxis: Therapeutic heparin gtt Home meds: Metoprolol, Rivaroxaban Metabolic: (1) Lactic acidosis, resolved -- Lactic acid 1.1 from 1.7 Home meds: None Other: No acute issues Home meds: None Deep vein thrombosis prophylaxis: Therapeutic heparin gtt Dietary: Pepcid Condition: critical Prognosis: guarded Code status: full Disposition: continue ICU Care and son updated at bedside regarding interval events and plan of care Cumulative time spent in the care of this patient (excluding any procedure time) : at least 40 minutes. Patient care included clinical interview (with patient and/or family), bedside exam of the patient, review of labs, x-rays, and other ancillary data, coordination of (respiratory, nursing care, review of patient's records, discussion regarding patients management with involved consultants, primary physician, pharmacists, and other healthcare personnel (dietary, case management , physical/occupational therapy etc.) Critical Care Time: 40 Critical Care Time:
[2019-07-07] MEDS ORDERED: Furosemide IV* 10 MG/ML 2 ML VIAL (20 MG) IV SLOW PU ONE (11:00)
[2019-07-07] MEDS: Midazolam IV for DRIP* 100 MG in NS 0.9% 100 ML* 80 ML IV SCH (13:11)
[2019-07-07] MEDS: Heparin DRIP 25,000 UNITS(*) 25,000 UNITS/500 ML BAG IV SCH (13:42)
[2019-07-07] MEDS ORDERED: Furosemide IV* 10 MG/ML VIAL (40 MG) IV SLOW PU ONE (14:19)
[2019-07-07 14:26] LABS: Hematocrit 33 % (42-52); Mean Corpuscular HGB Conc 33 g/dL (31-36); Mean Corpuscular Hemoglobin 32 pg (27-31); Mean Corpuscular Volume 97 fL (80-94); Mean Platelet Volume 8.3 fL (7.4-10.4); Platelet Count 158 10^3/uL (150-450); Red Blood Count 3.44 10^6 /uL (4.18-5.48); Red Cell Distribution Width 14 % (10-15); White Blood Count 6.3 10^3/uL (3.5-10.8)
[2019-07-07] MEDS: fentaNYL INFUSION 50 MCG/ML* 2,500 MCG/50 ML BAG IV SCH (14:46)
[2019-07-07 14:53] LABS: BUN/Creatinine Ratio 20.3 (8-20); Calcium 7.9 mg/dL (8.6-10.3); EGFR African American 40.2 (>60); EGFR Non-African American 33.2 (>60); Magnesium 2.3 mg/dL (1.9-2.7); Potassium 4.7 mmol/L (3.5-5.0)
[2019-07-07] MEDS: Norepinephrine 16MCG/ML IVPRE* 4,000 MCG/250 ML BAG IV SCH (17:58)
[2019-07-08] MEDS: Chlorhexidine MOUTHWASH 0.12%* 15 ML UDC TOPICAL SCH ×6 (00:27→20:30)
[2019-07-08 04:45] LABS: Hematocrit 32 % (42-52); Mean Corpuscular HGB Conc 34 g/dL (31-36); Mean Corpuscular Hemoglobin 32 pg (27-31); Mean Corpuscular Volume 94 fL (80-94); Mean Platelet Volume 8.3 fL (7.4-10.4); Platelet Count 163 10^3/uL (150-450); Red Blood Count 3.38 10^6 /uL (4.18-5.48); Red Cell Distribution Width 13 % (10-15); White Blood Count 6.1 10^3/uL (3.5-10.8)
[2019-07-08 05:09] LABS: BUN/Creatinine Ratio 25.4 (8-20); Calcium 7.9 mg/dL (8.6-10.3); EGFR African American 60.4 (>60); EGFR Non-African American 49.9 (>60); Magnesium 2.1 mg/dL (1.9-2.7); Phosphorus 1.9 mg/dL (2.5-5.0); Potassium 3.3 mmol/L (3.5-5.0)
[2019-07-08] MEDS: cefTRIAXone(*) 1 GM in NS 0.9% 50 ML* 50 ML IVPB SCH (05:40)
[2019-07-08] MEDS: Levothyroxine TAB* 25 MCG TAB PO SCH (05:51)
[2019-07-08] MEDS: Heparin VIAL(*) 5000 UNITS/ML VIAL (FIVE THOUSAND) IV SCH (05:52)
[2019-07-08] MEDS: Azithromycin 500 mg/250 ml NS 500 MG/250 ML BAG IVPB SCH (06:20)
[2019-07-08] MEDS: Amiodarone TAB* 400 MG PO SCH ×2 (08:10→20:30)
[2019-07-08] MEDS: Famotidine IV* 10 MG/ML 2 ML (20 mg) IV SLOW PU SCH ×2 (08:10→20:30)
[2019-07-08] MEDS: Norepinephrine 16MCG/ML IVPRE* 4,000 MCG/250 ML BAG IV SCH (08:23)
[2019-07-08] MEDS ORDERED: Norepinephrine 16MCG/ML IVPRE* 4,000 MCG/250 ML BAG IV SCH (09:31)
[2019-07-08] MEDS: KCL 20 MEQ/100 ML IVPREMIX* 20 MEQ/100 ML BAG IV SCH ×2 (10:29→12:51)
[2019-07-08] MEDS: Midazolam IV for DRIP* 100 MG in NS 0.9% 100 ML* 80 ML IV SCH (14:44)
[2019-07-08] MEDS ORDERED: Furosemide IV* 10 MG/ML 2 ML VIAL (20 MG) IV SLOW PU ONE (15:15)
--- NOTE | 2019-07-08 15:25 | PN ---
Date of Service: 07/08/19 - [facility] note Critical Care Services: Pt seen and examined at bedside. No acute events o/n. Not requiring Levophed. Sedation held since noon, pt opens eyes, not following commands Active Medications Generic Name Dose Route Start Last Admin Trade Name Freq PRN Reason Stop Dose Admin Amiodarone HCl 400 mg 07/07/19 21:00 07/08/19 08:10 Cordarone Tab* PO 07/11/19 09:01 400 mg BID GAYATRI Administration Amiodarone HCl 200 mg 07/12/19 09:00 Cordarone Tab* PO DAILY [facility] Chlorhexidine Gluconate 15 ml 07/05/19 12:00 07/08/19 12:18 Peridex Mouth Wash 0.12%* TOPICAL 15 ml Q4H GAYATRI Administration Famotidine 20 mg 07/05/19 21:00 07/08/19 08:10 Pepcid Iv* IV SLOW PU 20 mg BID GAYATRI Administration Fentanyl Citrate 25 mcg 07/05/19 11:30 07/05/19 13:35 Fentanyl* IV SLOW PU 50 mcg Q4H PRN Administration PAIN - SEVERE Heparin Sodium (Porcine) 0 ml 07/05/19 18:00 07/08/19 06:04 Heparin Flush Picc/Ml/Cvc(*) FLUSH Not Given 0600,1800 [facility] Protocol Heparin Sodium (Porcine) 0 units 07/06/19 08:00 07/08/19 05:52 Heparin Vial(*) IV 2,700 units .PER PROTOCOL GAYATRI Administration Fentanyl Citrate 2,500 mcg in 50 mls @ 1 mls/hr 07/05/19 14:30 07/07/19 14:46 Fentanyl Infusion Bag 50 Mcg/Ml 50 Ml IV 1 mls/hr Q48H GAYATRI Administration Protocol 50 MCG/HR Azithromycin 500 mg in 250 mls @ 250 mls/hr 07/06/19 06:30 07/08/19 06:20 Zithromax 500 Mg/250 Ml IVPB 250 mls/hr Q24H GAYATRI Administration Ceftriaxone Sodium 1 gm/ 50 mls @ 100 mls/hr 07/06/19 06:00 07/08/19 05:40 Sodium Chloride IVPB 100 mls/hr Q24H GAYATRI Administration Heparin Sodium/Dextrose 25,000 units in 500 mls @ 0 mls/hr 07/06/19 07:30 01/18 13:42 Heparin Drip 25,000 Units(*) IV 15 mls/hr PER RATE GAYATRI Administration Protocol Per Protocol Midazolam HCl 100 mg/ Sodium 100 mls @ 2 mls/hr 07/06/19 10:00 07/08/19 14:44 Chloride IV 2 mls/hr Q24H GAYATRI Administration Protocol 2 MG/HR Norepinephrine Bitartrate 4,000 mcg in 250 mls @ 18.75 mls/hr 07/08/19 09:31 Levophed 16 Mcg/Ml Premix* IV .INITIAL RATE GAYATRI Protocol 5 MCG/MIN Dexmedetomidine HCl 1,000 mcg/ 250 mls @ 0 mls/hr 07/08/19 16:00 Sodium Chloride IV Q24H GAYATRI Protocol Per Protocol Levothyroxine Sodium 50 mcg 07/07/19 06:00 07/08/19 05:51 Synthroid Tab* PO 50 mcg DAILY@0600 GAYATRI Administration Vital Signs: Temp Pulse Resp BP SpO2 FiO2 98.8 F 58 15 124/79 95 35 07/08/19 15:05 07/08/19 15:05 07/08/19 15:00 07/08/19 14:00 07/08/19 15:05 07/08 13:09 Physical Exam: Gen: Pt in NAD HEENT: PERRLA, ETT+ Lungs: Diminished at bases Cardiac: S1, S2+, bradycardic Abdomen: Soft, BS+ Extremities: Trace edema+ Neuro: Opens eyes to verbal stimuli, withdraws extremities, not able to follow commands Skin: No rash Fluid Balance (Past 24 Hours): I= 769 O= 332 Net 437 Intake & Output 07/06/19 07/07/19 07/08/19 07/09/19 06:59 06:59 06:59 06:59 Intake Total 5023 4877.6 1708.9 769 Output Total 161 542 6895 332 Balance 4379 4309.6 83.9 437 Weight 170 lb 3.15 oz 172 lb 6.287 oz 167 lb 12.348 oz Intake: IV Fluids 3028 2335 364.3 53 ABX - AZITHROMYCIN 140 15 Calcium Gluconate 70 NS (0.9%) 2508 2265 224.3 38 IVPB 241 260 429 408 ABX - AZITHROMYCIN 319 270 ABX - CEFTRIAXONE 62 Albumin 25% 140 Calcium Gluconate 74 120 Magnesium 105 110 Potassium chloride 138 Medicated IV 1754 2143.6 495.6 112 Albumin 100 CC - Amiodarone 552 156 CC - Dobutamine 41 CC - Phenylephrine/ 310.3 Neosynephrine CC - Vasopressin/ 8.3 Pitressin Heparin 244 Levophed 1460 988 339.6 112 Levothyroxine 194 IV Narcotic Infusion 20 96 Fentanyl 20 Versed 96 Heparin 139 200 Tube Feeding Flush Amount 200 100 Output: Aldrich 382 992 4109 332 Labs: Laboratory Results - last 24 hr 07/08/19 07/08/19 07/08/19 04:35 04:35 04:35 WBC 6.1 RBC 3.38 L Hgb 11.0 L Hct 32 L MCV 94 MCH 32 H MCHC 34 RDW 13 Plt Count 163 MPV 8.3 APTT 52.7 H ABG pH ABG pCO2 ABG pO2 ABG HCO3 ABG O2 Saturation ABG Base Excess Sodium 138 Potassium 3.3 L Chloride 113 H Carbon Dioxide 15 L Anion Gap 10 BUN 36 H Creatinine 1.42 H Est GFR ( Amer) 60.4 Est GFR (Non-Af Amer) 49.9 BUN/Creatinine Ratio 25.4 H Glucose 116 H Calcium 7.9 L Phosphorus 1.9 L Magnesium 2.1 07/08/19 07/08/19 04:38 12:15 WBC RBC Hgb Hct MCV MCH MCHC RDW Plt Count MPV APTT 72.6 H ABG pH 7.41 ABG pCO2 21 L ABG pO2 94 ABG HCO3 17.8 L ABG O2 Saturation 98.7 H ABG Base Excess -9.1 L Sodium Potassium Chloride Carbon Dioxide Anion Gap BUN Creatinine Est GFR ( Amer) Est GFR (Non-Af Amer) BUN/Creatinine Ratio Glucose Calcium Phosphorus Magnesium Studies: 07/07 CXR-Mod b/l pl effusions, ETT, OGT in place 07/07 CXR - moderate bilateral pleural effusions with bilateral pulmonary edema 07/06 TTE - completed, read pending EKG - Atrial flutter, 2:1 07/05 CXR - bilateral pleural effusions. bibasilar actelectais vs consolidation. cardiomegaly with pulmonary intersitital edema TTE - mildly dilated LV. mildly increased wall thickness. EF 15-20%. Multiple regional wall motion abnormalities: apex akinetic, posterior lateral wall and base move best. RV with moderately reduced systolic function. MV with moderate to severe regurgitation. TV with moderate to severe regurgitation. pulmonary artery pressure appears within normal limits. CTA chest - no acute pulmonary embolic disease. cardiomegaly with enlarged bilateral atria. moderate bilateral pleural effusions. engorgement of pulmonary venous system. Nutrition: Tube feeds Impression: 68 yo M admitted 07/05 with shock, bilateral pl effusions and paroxysmal atrial flutter. He initially presented to [place] ED for SOB, was found to have A.flutter, was d/kymberly home with metoprolol and Rivoroxaban. pt returned again with SOB, was given cardizem with resultant symptomatic hypotension, [place] [facility] [place] Found to have severely reduced EF on TTE. Significant episodes of profound hypotension coinciding with episodes of atrial flutter. On empiric abx for bilateral infiltrates, though given findings on TTE, now more likely pulmonary edema from heart failure. Cardioverted on 07/06 into NSR. 1: Cardiogenic shock 2: Paroxysmal Atrial fib/flutter with RVR 3: Acute hypoxic respiratory failure s/p intubation 4: Acute systolic CHF Plan: 1.Neuro: Pt off sedation currently, opens eyes to verbal stimuli however not able to follow commands. Pt able to move extremities spontaneously. Pupils are reactive. Will change to Precedex. Hold versed and Fentanyl. Will reassess mental status in few hrs. Will correct metabolic derangements. If MS not improved, will order CT brain. 2. CVS: Sys CHF, biventricular failure, A.fib s/p cardiversion. Pt still with pulm edema and pleural effusions, Will give 40mg of Lasix. Pt on Amiodarone, currently in NSR. Has been off Levophed currently. 3. Resp: Pt with acute hypoxic resp failure sec to pulm edema from sys CHF. Has b/l pl effusions. c/w mechanical ventilation. Pulm toilet. Pt comfortable on ventilator. Pulm toilet, vent bundle. Sedation vacation and weaning as tolerated 4. GI: c/w tube feeds. AST/ALT sec to cardiogenic shock. c/w GI ppx 5. Renal: UO steady, electrolyte abnormalities are being repleted. ARF, improving 6. Haem: Normocytic anemia, stable 7.ID: Being emperically treated for PNA, less likely to be PNA as inciting cause 8. Musculoskeltal: Frequent turning and positioning 9. DVT px: On heparin drip for A.fib/A.fluter Critical Care Time: 45
[2019-07-08] MEDS ORDERED: Dexmedetomidine* 1,000 MCG in NS 0.9% 250 ML* 240 ML IV SCH (16:00)
[2019-07-08 18:27] LABS: BUN/Creatinine Ratio 27.3 (8-20); Phosphorus 1.3 mg/dL (2.5-5.0); Potassium 3.6 mmol/L (3.5-5.0)
[2019-07-08] MEDS: fentaNYL* 50 MCG/ML 2 ML VIAL (100 MCG VIAL) IV SLOW PU PRN ×2 (19:40→23:38)
[2019-07-08] MEDS: Heparin DRIP 25,000 UNITS(*) 25,000 UNITS/500 ML BAG IV SCH (21:48)
[2019-07-09] MEDS ORDERED: Haloperidol INJ IV/IM* 5 MG/ML AMP IM ONE (00:13)
[2019-07-09] MEDS ORDERED: Haloperidol INJ IV/IM* 5 MG/ML AMP ONE (00:14)
[2019-07-09] MEDS ORDERED: Furosemide IV* 10 MG/ML VIAL (40 MG) ONE (00:33)
[2019-07-09] MEDS ORDERED: Furosemide IV* 10 MG/ML VIAL (40 MG) IV ONE (00:33)
[2019-07-09] MEDS ORDERED: Lorazepam PYXIS KEY ONE ×2 (01:09→05:45)
[2019-07-09] MEDS ORDERED: LORazepam INJ* 2 MG/ML 1 ML VIAL ONE ×2 (01:10→05:45)
[2019-07-09] MEDS: Chlorhexidine MOUTHWASH 0.12%* 15 ML UDC TOPICAL SCH ×2 (01:14→04:11)
[2019-07-09] MEDS ORDERED: LORazepam INJ* 2 MG/ML 1 ML VIAL IV PUSH ONE (01:15)
[2019-07-09] MEDS ORDERED: Lorazepam PYXIS KEY PRN ×3 (01:15→11:14)
[2019-07-09] MEDS ORDERED: Dexmedetomidine* 1,000 MCG in NS 0.9% 250 ML* 240 ML IV SCH (01:30)
[2019-07-09] MEDS: Heparin VIAL(*) 5000 UNITS/ML VIAL (FIVE THOUSAND) IV SCH (01:41)
[2019-07-09] MEDS: cefTRIAXone(*) 1 GM in NS 0.9% 50 ML* 50 ML IVPB SCH (05:27)
[2019-07-09] MEDS: Azithromycin 500 mg/250 ml NS 500 MG/250 ML BAG IVPB SCH (05:27)
[2019-07-09 05:30] LABS: Hematocrit 34 % (42-52); Hemoglobin 11.6 g/dL (14.0-18.0); Mean Corpuscular HGB Conc 35 g/dL (31-36); Mean Corpuscular Hemoglobin 32 pg (27-31); Mean Corpuscular Volume 94 fL (80-94); Mean Platelet Volume 8.4 fL (7.4-10.4); Platelet Count 201 10^3/uL (150-450); Red Cell Distribution Width 13 % (10-15); White Blood Count 7.9 10^3/uL (3.5-10.8)
[2019-07-09] MEDS: Levothyroxine TAB* 25 MCG TAB PO SCH (05:40)
[2019-07-09 05:54] LABS: BUN/Creatinine Ratio 26.2 (8-20); Calcium 8.2 mg/dL (8.6-10.3); EGFR African American 83.7 (>60); EGFR Non-African American 69.1 (>60); Phosphorus 1.6 mg/dL (2.5-5.0); Potassium 3.8 mmol/L (3.5-5.0)
[2019-07-09] MEDS ORDERED: Albuterol HFA INHALER* 8 gm MDI INH PRN (07:45)
[2019-07-09] MEDS: Famotidine IV* 10 MG/ML 2 ML (20 mg) IV SLOW PU SCH (07:47)
[2019-07-09] MEDS ORDERED: Potassium Phosphate IV* 15 MMOLE in NS 0.9% 250 ML* 250 ML IVPB ONE (08:30)
[2019-07-09] MEDS: Morphine INJ* 4 MG/ML 1 ML SYRINGE (NEW SYRINGE VERSION) IV PRN ×10 (08:40→23:16)
[2019-07-09] MEDS ORDERED: Albuterol 2.5 MG/3 ML NEB.SOL* (0.083%) INH ONE ×2 (09:04→09:23)
--- NOTE | 2019-07-09 09:26 | PN ---
Date of Service: 07/09/19 - [facility] note Critical Care Services: Pt seen and examined at bedside. Overnight events noted. Pt self extuabted himself, last night, ABC alert was called and pt was bagged. Family was at bedside. They expressed that pts wishes are not to have intubation or CPR. Pts mental status didnot improve any after holding sedation since yesterday morning. He was not imani to follow commands after extubation yesterday. He was able to track his wifes voice only in room. Active Medications Generic Name Dose Route Start Last Admin Trade Name Freq PRN Reason Stop Dose Admin Albuterol 2.5 mg 07/09/19 09:04 Ventolin 2.5 Mg/3 Ml Neb.Rona* INH 07/09/19 09:05 ONCE ONE Amiodarone HCl 400 mg 07/07/19 21:00 07/08/19 20:30 Cordarone Tab* PO 07/11/19 09:01 400 mg BID GAYATRI Administration Amiodarone HCl 200 mg 07/12/19 09:00 Cordarone Tab* PO DAILY GAYATRI Famotidine 20 mg 07/05/19 21:00 07/09/19 07:47 Pepcid Iv* IV SLOW PU 20 mg BID GAYATRI Administration Fentanyl Citrate 25 mcg 07/05/19 11:30 07/08/19 23:38 Fentanyl* IV SLOW PU 25 mcg Q4H PRN Administration PAIN - SEVERE Heparin Sodium (Porcine) 0 ml 07/05/19 18:00 07/09/19 05:25 Heparin Flush Picc/Ml/Cvc(*) FLUSH Not Given 0600,1800 GAYATRI Protocol Heparin Sodium (Porcine) 0 units 07/06/19 08:00 07/09/19 01:41 Heparin Vial(*) IV 2,700 units .PER PROTOCOL GAYATRI Administration Azithromycin 500 mg in 250 mls @ 250 mls/hr 07/06/19 06:30 07/09/19 05:27 Zithromax 500 Mg/250 Ml IVPB 250 mls/hr Q24H GAYATRI Administration Ceftriaxone Sodium 1 gm/ 50 mls @ 100 mls/hr 07/06/19 06:00 07/09/19 05:27 Sodium Chloride IVPB 100 mls/hr Q24H GAYATRI Administration Heparin Sodium/Dextrose 25,000 units in 500 mls @ 0 mls/hr 07/06/19 07:30 02/17 21:48 Heparin Drip 25,000 Units(*) IV 18 mls/hr PER RATE GAYATRI Administration Protocol Per Protocol Norepinephrine Bitartrate 4,000 mcg in 250 mls @ 18.75 mls/hr 07/08/19 09:31 Levophed 16 Mcg/Ml Premix* IV .INITIAL RATE GAYATRI Protocol 5 MCG/MIN Dexmedetomidine HCl 1,000 mcg/ 250 mls @ 0 mls/hr 07/09/19 01:30 07/09/19 04: 10 Sodium Chloride IV Not Given Q24H [facility] Protocol Per Protocol Potassium Phosphate 15 mmole/ 255 mls @ 42 mls/hr 07/09/19 08:30 07/09/19 08: 45 Sodium Chloride IVPB 07/09/19 14:34 42 mls/hr ONCE ONE Administration Levothyroxine Sodium 50 mcg 07/07/19 06:00 07/09/19 05:40 Synthroid Tab* PO Not Given DAILY@0600 [facility] Miscellaneous 1 ea 07/09/19 01:15 Ativan Pyxis Estrada N/A .ATIVAN IV ESTRADA PRN PYXIS ESTRADA Morphine Sulfate 4 mg 07/09/19 07:44 07/09/19 08:40 Morphine Inj (Syringe)* IV 4 mg Q4H PRN Administration PAIN - SEVERE Vital Signs: Temp Pulse Resp BP SpO2 FiO2 101.3 F 66 28 109/84 97 50 07/09/19 08:10 07/09/19 08:10 07/09/19 08:40 07/09/19 08:00 07/09/19 08:10 07/09 04:00 Physical Exam: Gen: Pt is tachypneic on BiPAP HEENT: PERRLA, mucus membranes moist Lungs: Rhonchi+ Cardiac: S1, S2+ Abdomen: Soft, BS+ Extremities: Edema+, withdraws to pain Neuro: Drowsy, doesnot follow commands Skin: No rash Fluid Balance (Past 24 Hours): I= 2399 O= 2011 Net 387 Intake & Output 07/07/19 07/08/19 07/09/19 07/10/19 06:59 06:59 06:59 06:59 Intake Total 4877.6 1708.9 2399 Output Total 568 1625 2011 Balance 4309.6 83.9 387 Weight 172 lb 6.287 oz 167 lb 12.348 oz 194 lb 0.108 oz Intake: IV Fluids 2335 364.3 365 ABX - AZITHROMYCIN 140 54 ABX - CEFTRIAXONE 153 Calcium Gluconate 70 NS (0.9%) 2265 224.3 158 IVPB 260 429 618 ABX - AZITHROMYCIN 319 356 ABX - CEFTRIAXONE 38 Albumin 25% 140 Calcium Gluconate 120 Magnesium 110 Potassium chloride 224 Medicated IV 2143.6 495.6 1220 CC - Amiodarone 552 156 CC - Dexmedetomidine/ 247 Precedex CC - Dobutamine 41 CC - Phenylephrine/ 310.3 Neosynephrine CC - Vasopressin/ 8.3 Pitressin Heparin 244 603 Levophed 988 339.6 370 IV Narcotic Infusion 20 96 Fentanyl 20 Versed 96 Heparin 139 200 Tube Feeding Flush Amount 200 100 Output: Aldrich 568 1625 2011 Labs: Laboratory Results - last 24 hr 07/08/19 07/08/19 07/08/19 12:15 18:02 18:02 WBC RBC Hgb Hct MCV MCH MCHC RDW Plt Count MPV APTT 72.6 H 58.6 H Patient Temperature ABG pH ABG pH (Temp Correct) ABG pCO2 ABG pCO2 (Temp Corrct ABG pO2 ABG pO2 (Temp Correct ABG HCO3 ABG O2 Saturation ABG Base Excess Respiration Rate O2 Delivery Device Ventilator Type Vent Mode FiO2 Inspiratory Time PEEP Pressure Support Pressure Control EPAP IPAP BiPAP Sodium 138 Potassium 3.6 Chloride 112 H Carbon Dioxide 19 L Anion Gap 7 BUN 30 H Creatinine 1.10 Est GFR ( Amer) 81.0 Est GFR (Non-Af Amer) 67.0 BUN/Creatinine Ratio 27.3 H Glucose 166 H Calcium 8.0 L Phosphorus 1.3 L Magnesium 2.0 07/08/19 07/09/19 07/09/19 23:55 00:30 02:16 WBC RBC Hgb Hct MCV MCH MCHC RDW Plt Count MPV APTT 48.2 H Patient Temperature Not Reportable 38.1 ABG pH 7.39 7.43 ABG pH (Temp Correct) Not Reportable Not Reportable ABG pCO2 25 L 22 L ABG pCO2 (Temp Corrct Not Reportable Not Reportable ABG pO2 86 92 ABG pO2 (Temp Correct Not Reportable Not Reportable ABG HCO3 18.6 L 19.0 ABG O2 Saturation 98.4 H 99.0 H ABG Base Excess -8.1 L -7.6 L Respiration Rate Not Reportable 18 O2 Delivery Device Bipap Ventilator Type Not Reportable Not Reportable Vent Mode Not Reportable Not Reportable FiO2 50 50 Inspiratory Time Not Reportable 1.00 PEEP Not Reportable Not Reportable Pressure Support Not Reportable Not Reportable Pressure Control Not Reportable Not Reportable EPAP 6 6 IPAP 12 12 BiPAP Not Reportable Not Reportable Sodium Potassium Chloride Carbon Dioxide Anion Gap BUN Creatinine Est GFR ( Amer) Est GFR (Non-Af Amer) BUN/Creatinine Ratio Glucose Calcium Phosphorus Magnesium 07/09/19 07/09/19 07/09/19 05:00 05:00 07:05 WBC 7.9 RBC 3.60 L Hgb 11.6 L Hct 34 L MCV 94 MCH 32 H MCHC 35 RDW 13 Plt Count 201 MPV 8.4 APTT 78.3 H Patient Temperature ABG pH ABG pH (Temp Correct) ABG pCO2 ABG pCO2 (Temp Corrct ABG pO2 ABG pO2 (Temp Correct ABG HCO3 ABG O2 Saturation ABG Base Excess Respiration Rate O2 Delivery Device Ventilator Type Vent Mode FiO2 Inspiratory Time PEEP Pressure Support Pressure Control EPAP IPAP BiPAP Sodium 138 Potassium 3.8 Chloride 111 Carbon Dioxide 19 L Anion Gap 8 BUN 28 H Creatinine 1.07 Est GFR ( Amer) 83.7 Est GFR (Non-Af Amer) 69.1 BUN/Creatinine Ratio 26.2 H Glucose 141 H Calcium 8.2 L Phosphorus 1.6 L Magnesium 2.0 Studies: CXR 07/09- Pulm vascular congestion, b/l pl effusions Nutrition: NPO since self-extubation given depressed mental status Impression: 68 yo M admitted 07/05 with shock, bilateral pl effusions and paroxysmal atrial flutter. He initially presented to [place] ED for SOB, was found to have A.flutter, was d/kymberly home with metoprolol and Rivoroxaban. pt returned again with SOB, was given cardizem with resultant symptomatic hypotension, was transferred to [facility]. Found to have severely reduced EF on TTE. Significant episodes of profound hypotension coinciding with episodes of atrial flutter. On empiric abx for bilateral infiltrates, though given findings on TTE, now more likely pulmonary edema from heart failure. Cardioverted on 07/06 into NSR. 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 AMS Plan: 1.Neuro: Pt off sedation for almost 24 hrs with no improvement in mental status. Pt doesnot follow commands. Pt able to move extremities spontaneously to painful stimuli. Pupils are reactive. c/w Precedex. Hold versed and Fentanyl. Morphine prn for resp distress. Will start drip if family wants to withdraw care. Will consider CT brain. Family however considering withdrawing care 2. CVS: Sys CHF, biventricular failure, A.fib s/p cardiversion. Pt still with pulm edema and pleural effusions, Will give additional 40mg of Lasix. Pt on Amiodarone, currently in NSR. Has been off Levophed for >24 hrs 3. Resp: Pt with acute hypoxic resp failure sec to pulm edema from sys CHF. Has b/l pl effusions. Self extubated early hrs of 07/09. Pt currently on BiPAP. Pulm toilet. Neb treatment given. Concern for possible ASP PNA last night. Pt on abx 4. GI:Tube feeds stopped. Unable to c/w feeds at this time due to mental status changes. AST/ALT sec to cardiogenic shock. c/w GI ppx 5. Renal: UO steady, electrolyte abnormalities are being repleted. ARF, improving 6. Haem: Normocytic anemia, stable 7.ID: Being emperically treated for PNA, possible Asp PNA last night. Pt currently on Azithro and Ceftriaxone, will continue. Pt continues to spike fevers, septic w/u repeated. Will consider broadening abx. Tylenol prn for fever. 8. Musculoskeltal: Frequent turning and positioning 9. DVT px: On heparin drip for A.fib/A.fluter Pt is DNR, family leaning towards comfort measures if no improvement as pt didnot want agressive measures Critical Care Time: 40
[2019-07-09] MEDS ORDERED: Furosemide IV* 10 MG/ML VIAL (40 MG) IV SLOW PU ONE (09:30)
[2019-07-09] MEDS ORDERED: Morphine INJ* 2 MG/ML 1 ML SYRINGE (TWO MG - NEW SYRINGE VERSION) IV PRN (09:32)
[2019-07-09] MEDS: Amiodarone TAB* 400 MG PO SCH ×2 (10:27→20:59)
[2019-07-09 10:53] LABS: Urine Appearance Clear; Urine Bilirubin Negative (Negative); Urine Blood 2+ (Negative); Urine Color Yellow; Urine Glucose Negative (Negative); Urine Ketones Negative (Negative); Urine Nitrite Negative (Negative); Urine Protein Negative (Negative); Urine Specific Gravity 1.015 (1.010-1.030); Urine Urobilinogen Negative (Negative)
[2019-07-09 10:59] LABS: Urine Bacteria Absent (Absent); Urine Red Blood Cell 2+(6-10/hpf) (Absent); Urine Squamous Epithelial Cell Present (Absent); Urine White Blood Cell Trace(0-5/hpf) (Absent)
--- NOTE | 2019-07-09 11:24 | PN ---
Progress Note - Progress Note Date of Service: 07/09/19 - Progress update Note: Family requested comfort measures and BiPAP to be removed Pt was made comfort care. Morphine and Ativan was given BiPAP was removed at 11:00 am Scopolamine and Atropine were ordered Other medications were discontinued. Pt on nasal cannula
[2019-07-09] MEDS: LORazepam INJ* 2 MG/ML 1 ML VIAL IV PUSH SCH ×8 (11:36→23:16)
[2019-07-09] MEDS: Atropine 1% (ORAL/SL)* 15 ML BTL SL PRN ×2 (11:37→14:12)
[2019-07-09] MEDS ORDERED: Scopolamine 1.5 mg* PATCH TRANSDERM SCH (12:00)
[2019-07-09 12:26] VITALS: BP 101/66
[2019-07-10] MEDS: LORazepam INJ* 2 MG/ML 1 ML VIAL IV PUSH SCH ×19 (02:27→23:26)
[2019-07-10] MEDS: Morphine INJ* 4 MG/ML 1 ML SYRINGE (NEW SYRINGE VERSION) IV PRN ×5 (02:27→13:25)
[2019-07-10] MEDS ORDERED: Morphine INJ* 4 MG/ML 1 ML SYRINGE (NEW SYRINGE VERSION) IV ONE ×2 (06:15→10:00)
[2019-07-10] MEDS ORDERED: Perflutren Lipid Microsphere* 3 ML VIAL ONE (07:35)
[2019-07-10] MEDS: Amiodarone TAB* 400 MG PO SCH ×2 (08:39→20:45)
--- NOTE | 2019-07-10 09:51 | ECHO ---
*[facility]* [place] [address] Fax #: [phone] Limited Transthoracic Echocardiogram Patient: [place] : 1950 Study Date: 07/10/2019 Age: 68 Gender: M HR: 70 bpm Height: 64.2 in /163 cm BSA: 1.89 m^2 Weight: 169.4 lb /77 kg BMI: 29 kg/m^2 *Automobile Assembler: * Kelin Casarez [facility] *Referring Physician: * Matheus Montes MD *Reading Physician: * Fidencio Grady MD Indications: Congestive Heart Failure. History: Sepsis, Cardiogenic shock. Transient ischemic attack. PMH: Cardiomyopathy. Conclusions Summary: - Left ventricle: Systolic function is severely reduced. The estimated ejection fraction is 20-25%. Diffuse hypokinesis. - Right ventricle: Systolic function is moderately to severely reduced. - Pericardium, extracardiac: There is pleural effusion. - Compared with study of 07/06/19, the left ventricle function is slightly better. Study data: Transthoracic echocardiogram, limited study. Procedure: Transthoracic echocardiography was performed. Image quality was fair. Location: ICU Patient status: Inpatient. Patient room number: 7. Rhythm: Normal sinus rhythm with PVC's. Findings Left ventricle: Systolic function is severely reduced. The estimated ejection fraction is 20-25%. Diffuse hypokinesis. Right ventricle: Systolic function is moderately to severely reduced. Pericardium: There is no significant pericardial effusion. There is pleural effusion. Prepared and electronically signed by Fidencio Grady MD 07/10/2019 09:51
--- NOTE | 2019-07-10 13:32 | PN ---
Date of Service: 07/10/19 Critical Care Services: Comfort Care Vital Signs: Temp Pulse Resp BP SpO2 FiO2 38.4 C 70 18 101/66 76 50 07/10/19 11:00 07/10/19 11:00 07/10/19 10:53 07/09/19 12:01 07/10/19 11:00 07/09 07:35 Physical Exam: Gen: appears comfortable generally but still paroxysms of discomfort and snoring respirations Lungs: rhonchi Fluid Balance (Past 24 Hours): I= O= Net Intake & Output 07/08/19 07/09/19 07/10/19 07/11/19 06:59 06:59 06:59 06:59 Intake Total 1708.9 2399 383 Output Total 1625 2011 125 Balance 83.9 387 258 Weight 76.1 kg 88 kg Intake: IV Fluids 364.3 365 ABX - AZITHROMYCIN 140 54 ABX - CEFTRIAXONE 153 NS (0.9%) 224.3 158 IVPB 429 618 78 ABX - AZITHROMYCIN 319 356 ABX - CEFTRIAXONE 38 Magnesium 110 NS (0.9%) 25 Potassium chloride 224 kphos 53 Medicated IV 495.6 1220 305 CC - Amiodarone 156 CC - Dexmedetomidine/ 247 70 Precedex Heparin 603 108 Levophed 339.6 370 127 IV Narcotic Infusion 20 96 Fentanyl 20 Versed 96 Heparin 200 Tube Feeding Flush Amount 200 100 Output: Aldrich 1625 2012 125 Impression: Cardiomyopathy - Comfort Care Plan: Family bravely chose comfort care consistent with patient's known wishes for his newly diagnosed severe cardiomyopathy. He has been receiving intermittent morphine with intermittent control of his discomfort. To enhance his continuity of comfort and smooth out the paroxysms of discomfort will start a gtt as D/W with family and strongly supported by them.
[2019-07-10] MEDS ORDERED: Morphine PCA LOW DOSE* 1 MG/ML 30 ML SYRINGE PCA SCH (14:00)
[2019-07-10] MEDS ORDERED: Morphine PCA 5 MG/ML * Titrate per Protocol PCA SCH (14:00)
[2019-07-10] MEDS: Chlorhexidine MOUTHWASH 0.12%* 15 ML UDC TOPICAL SCH (18:47)
[2019-07-10] MEDS ORDERED: Lorazepam PYXIS KEY PRN (21:55)
[2019-07-10] MEDS: Atropine 1% (ORAL/SL)* 15 ML BTL SL PRN (22:53)
[2019-07-11] MEDS: LORazepam INJ* 2 MG/ML 1 ML VIAL IV PUSH SCH ×12 (00:11→11:51)
[2019-07-11] MEDS: Morphine INJ* 4 MG/ML 1 ML SYRINGE (NEW SYRINGE VERSION) IV PRN ×8 (01:13→11:30)
[2019-07-11] MEDS: fentaNYL* 50 MCG/ML 2 ML VIAL (100 MCG VIAL) IV SLOW PU PRN ×2 (01:14→09:24)
[2019-07-11] MEDS: Atropine 1% (ORAL/SL)* 15 ML BTL SL PRN ×4 (01:16→07:55)
[2019-07-11] MEDS ORDERED: Morphine PCA ADULT* 5 MG/ML 30 ML PCA SCH ×2 (07:40→11:28)
[2019-07-11] MEDS: Amiodarone TAB* 400 MG PO SCH (08:03)
[2019-07-11] MEDS ORDERED: Morphine 10 MG/ML VIAL (1 ml) ONE (11:26)
[2019-07-11] MEDS ORDERED: Morphine INJ* 10 MG/ML 1 ML CARPUJECT IV ONE (11:29)
[2019-07-11] MEDS ORDERED: Morphine 10 MG/ML VIAL (1 ml) IV ONE (12:00)
--- NOTE | 2019-07-11 14:01 | DS ---
Please see admission H&P for details. Admitted for acute hypoxic respiratory failure in the setting of newly diagnosed cardiomyopathy. Self-extubated over the weekend and was encephalopathic. Discussion were had between critical care and patient's family and family opted for comfort care. He was placed on comfort care and peacefully with family at the bedside on 07/10/2019 at 1230 hours. Cause of acute hypoxic respiratory failure secondary to cardiomyopathy.
[2019-07-12] MEDS ORDERED: Amiodarone TAB* 200 MG PO SCH (09:00)
== END 2019-07-11 12:30 | disposition expired | DRG 871 ==
LOC: ED 05:14 → ICU 08:48
PROVIDERS: ADMIT Internal Medicine Critical Care Medicine; ATTEND Internal Medicine Critical Care Medicine
PROC: 03HC33Z Insertion of Infusion Device into Left Radial Artery, Percutaneous Approach (ICD-10-PCS; 2019-07-05)
PROC: 05HN33Z Insertion of Infusion Device into Left Internal Jugular Vein, Percutaneous Approach (ICD-10-PCS; 2019-07-05)
PROC: 0BH17EZ Insertion of Endotracheal Airway into Trachea, Via Natural or Artificial Opening (ICD-10-PCS; 2019-07-05)
PROC: 5A1945Z Respiratory Ventilation, 24-96 Consecutive Hours (ICD-10-PCS; 2019-07-05)
PROC: 3E033XZ Introduction of Vasopressor into Peripheral Vein, Percutaneous Approach (ICD-10-PCS; 2019-07-05)
PROC: 5A2204Z Restoration of Cardiac Rhythm, Single (ICD-10-PCS; 2019-07-06)
PROC: B24BZZ4 Ultrasonography of Heart with Aorta, Transesophageal (ICD-10-PCS; principal; 2019-07-06 08:00)
DX: A41.9 Sepsis, unspecified organism (principal); J18.9 Pneumonia, unspecified organism; R65.21 Severe sepsis with septic shock; J96.01 Acute respiratory failure with hypoxia; I50.21 Acute systolic (congestive) heart failure; I48.92 Unspecified atrial flutter; E87.2 Acidosis; N17.9 Acute kidney failure, unspecified; I42.9 Cardiomyopathy, unspecified; G93.40 Encephalopathy, unspecified; I48.0 Paroxysmal atrial fibrillation; E03.9 Hypothyroidism, unspecified; E83.51 Hypocalcemia; E83.42 Hypomagnesemia; R57.0 Cardiogenic shock; I08.1 Rheumatic disorders of both mitral and tricuspid valves; D64.9 Anemia, unspecified; Z86.73 Personal history of transient ischemic attack (TIA), and cerebral infarction without residual deficits
CPT/HCPCS: 36415; 36600; 71045; 71275; 80048; 80053; 80061; 81003; 81015; 82550; 82553; 82803; 83036; 83605; 83735; 83880; 84075; 84100; 84439; 84443; 84484; 85025; 85027; 85610; 85730; 87040; 87070; 87086; 87205; 87641; 92960; 93005; 93306; 93308; 93312; 93325; 94003; 94640; 94660; 96365; 99156; 99285; A9270-GY; C8929; J0153; J0282; J0330; J0456; J0610; J0696; J1160; J1250; J1630; J1644; J1650; J1720; J1940; J2060; J2250; J2270; J2310; J2405; J3010; J3475; J3480; P9047; Q9967